=== PATIENT | male | born 1960 | race Caucasian/White ===

== ENCOUNTER 2021-05-04 10:05 | Inpatient (IN) ==
[2021-05-04] MEDS ORDERED: ONDANSETRON INJ 2 MG/ML 2 ML VIAL IV STA (10:19)
[2021-05-04] MEDS ORDERED: SODIUM CHLORIDE 0.9% 1000ML 1,000 ML IV STA (10:19)
--- NOTE | 2021-05-04 10:41 | Emergency Department Note ---
Impression & Plan DKA (diabetic ketoacidosis), Abdominal pain, acute, epigastric, Vomiting, Metabolic acidosis ED Provider Note NAME: TAY [id number] WIN AGE: 60 SEX: M : 1960 ARRIVES VIA: Ambulance INFORMANT: Patient, ED PROVIDER(S): Jad Varghese DO CHIEF COMPLAINT: Epigastric pain HPI: The patient is a 60-year-old male who presented to the emergency department for an evaluation of abdominal pain. The patient describes epigastric abdominal pain which began over the course the last 24 hours. He does have a history of pancreatitis. He is been vomiting. He did note some bright red blood in his last episode of emesis. He was treated with intranasal fentanyl prior to arrival. The patient states he also has a history of diabetes. He is noticed his blood sugars are elevated. He denies having any lower extremity pain or swelling. He does describe epigastric pain as well as back pain. He states he has not had pancreatitis in many years. He was able to stop drinking for a long time but yesterday started drinking again. ROS: See above HPI for pertinent positives & negatives. A total of 10 systems reviewed and were otherwise negative. PAST MEDICAL HISTORY: See Below PAST SURGICAL HISTORY: See Below FAMILY HISTORY: See Below SOCIAL HISTORY: See Below HOME MEDICATIONS: See Below ALLERGIES: See Below VITALS: See Below PHYSICAL EXAMINATION: GENERAL: The patient is awake and alert. The patient is very anxious appearing. EYES: The conjunctivae are clear. The pupils are round and reactive. EARS, NOSE, MOUTH AND THROAT: The nose is without any evidence of any deformity. NECK: The neck is nontender and supple. RESPIRATORY: Normal respiratory effort is noted there is no evidence of wheezing rhonchi or rales CARDIOVASCULAR: Regular rate and rhythm noted there no murmurs rubs or gallops normal S1 normal S2. GASTROINTESTINAL: The abdomen is soft and mildly distended. There is diffuse tenderness to palpation. There was no specific guarding or rigidity. MUSCULOSKELETAL/EXTREMITIES: There is no evidence of gross deformity full range of motion is noted in the hips and shoulders. SKIN: There is no obvious evidence of any rash. There are no petechiae, pallor or cyanosis noted. NEUROLOGIC: Patient is awake alert and oriented x3 strength is symmetric patellar reflexes are 2+ bilaterally MEDICAL DECISION MAKING: The patient is a 60-year-old male who presented to the emergency department for an evaluation of epigastric pain. The patient arrived via ambulance. He was having severe nausea and vomiting. He does have a history of pancreatitis. He states he thought this was from his pancreatitis. The patient was treated with pain medication prior to arrival as well as treated with pain medication in the emergency department. He also received IV fluids in the emergency department. The patient was having continued pain as well as nausea. He was found to have signs of early DKA on laboratory studies with a gap metabolic acidosis as well as significant elevation in his beta hydroxybutyrate. I discussed the patient's condition with him. [facility] also [facility] agreed to evaluate the patient in the emergency department for further management and disposition. Triage Nursing notes reviewed. Prior medical records reviewed Vital Signs: reviewed and remarkable for elevated blood pressure. Differential diagnosis: Etiologies such as appendicitis, diverticulitis, obstruction, inflammatory bowel disease, renal colic, PUD, biliary pathology, pancreatitis, mesenteric ischemia, aortic pathology, infections, genitourinary, UTI, perforated viscus, as well as others were entertained. ER treatment provided: See below Diagnostics interpreted by me: ECG: EKG was obtained in the emergency department. My interpretation is sinus tachycardia 101 bpm. There was no ectopy. There was no acute ST segment abnormalities noted. This was compared to a tracing from November 262011. No significant changes were noted. Cardiac Monitoring: An order was placed for continuous cardiac monitoring. The monitor shows a rate of 88 bpm with sinus rhythm. Laboratory studies: As stated above and show below. Imaging studies: See below Consultation(s): I discussed this case with Dr. Morris who [facility] They will evaluate the patient in the emergency department. Past Med/Surg History Medical History Alcohol dependence Chronic pain syndrome Chronic pancreatitis Diabetes mellitus type 1 Severe major depression, single episode, without psychotic features Surgical History S/P appendectomy S/P ERCP Social History Smoking Status: Current every day smoker Hx Alcohol Use: Yes Hx Substance Use: Yes Prescribed Medications: Marijuana Allergies Allergies Allergy/AdvReac Type Severity Reaction Status Date / Time trazodone AdvReac Severe PRIAPISM Verified 05/04/21 10:35 Home Meds Home Medications Medication Instructions Recorded Confirmed clonazepam 0.5 mg tablet 0.5 mg PO BID 05/04/21 05/04/21 gabapentin 400 mg capsule 400 mg PO TID 05/04/21 05/04/21 insulin glargine 100 unit/mL (3 15 unit SUBCUT BID 05/04/21 05/04/21 mL) subcutaneous pen (Lantus Solostar U-100 Insulin) lipase 4,200-protease 1 cap PO TIDM 05/04/21 05/04/21 14,200-amylase 24,600 unit capsule,delayed rel (Pancreaze) Results & Data (ED) Vital Signs Vital Signs - 24 hr 05/04/21 09:45 05/04/21 10:19 05/04/21 11:45 Temperature Temperature Source Pulse Rate Pulse Rate [Apical] 100 H Pulse Rate from SpO2 Sensor Pulse Rhythm [Apical] Pulse Strength [Apical] Respiratory Rate 22 Respiratory Effort / Characteristics Respiratory Depth Normal Respiratory Pattern Blood Pressure [Right Arm] 134/67 Blood Pressure Mean [Right Arm] 89 Blood Pressure Position [Right Arm] Pulse Oximetry 98 Oxygen Delivery Method Room Air Room Air Room Air Sepsis New/Unexplained Change in Mental Status No Sepsis Action Taken by Nursing No Action Required 05/04/21 12:04 05/04/21 13:30 05/04/21 15:12 Temperature 37 C Temperature Source Oral Pulse Rate 95 H Pulse Rate [Apical] 96 H 88 Pulse Rate from SpO2 Sensor 96 H Pulse Rhythm [Apical] Regular Regular Pulse Strength [Apical] Normal Normal Respiratory Rate 23 20 20 Respiratory Effort / Characteristics Non-Labored Spontaneous Non-Labored Respiratory Depth Normal Normal Respiratory Pattern Regular Regular Blood Pressure [Right Arm] 164/94 H 191/83 H Blood Pressure Mean [Right Arm] 117 119 Blood Pressure Position [Right Arm] Sitting Lying Pulse Oximetry 99 99 99 Oxygen Delivery Method Room Air Room Air Sepsis New/Unexplained Change in Mental Status Sepsis Action Taken by [facility] Medications Current Medication List: was personally reviewed by me Laboratory Data Attestation: I reviewed the patient's lab results. Result diagrams: 05/04/21 10:25 05/04/21 10:25 Lab Results 05/04/21 05/04/21 05/04/21 Range/Units 10:25 10:25 10:25 WBC 12.26 H (4.8-10.8) K/uL RBC 4.52 L (4.7-6.1) M/uL Hgb 12.8 L (14.0-18.0) g/dL Hct 38.7 L (42-52) % MCV 85.6 (80-100) fL MCH 28.3 (25-34) pg MCHC 33.1 (32-36) g/dL RDW Std Deviation 50.5 H (36.4-46.3) fL RDW Coeff of Nils 16.3 H (11.5-14.5) % Plt Count 333 (130-400) K/uL MPV 8.7 (7.4-10.4) fL Immature Gran % (Auto) 0.2 % Neut % (Auto) 87.9 % Lymph % (Auto) 8.0 % [place] % (Auto) 3.8 % Eos % (Auto) 0.0 % Baso % (Auto) 0.1 % Neut # (Auto) 10.78 H (1.4-6.5) K/uL Lymph # (Auto) 0.98 L (1.2-3.4) K/uL [place] # (Auto) 0.46 (0.11-0.59) K/uL Eos # (Auto) 0.00 (0-0.5) K/uL Baso # (Auto) 0.01 (0-0.2) K/uL Immature Gran # (Auto) 0.03 H (0.00-0.02) K/uL PT 11.8 (9.0-12.0) Seconds INR 1.2 H (0.9-1.1) APTT 22.8 (21.0-31.0) Seconds PTT Ratio 0.9 VBG pH (7.36-7.41) VBG pCO2 (38-50) mmHg VBG pO2 mmHg VBG HCO3 mmol/L VBG O2 Saturation % VBG Base Excess mEq/L Barometric Pressure mm/Hg Sodium 132 L (136-145) mmol/L Potassium 4.5 (3.5-5.1) mmol/L Chloride 99 (98-107) mmol/L Carbon Dioxide 12 L (21-32) mmol/L Anion Gap 21.0 H (3-11) BUN 15 (7-18) mg/dl Creatinine 1.21 (0.6-1.4) mg/dl Est Cr Clr Drug Dosing Not Reportable Est GFR ( Amer) 76.0 ml/min Est GFR (Non-Af Amer) 65.6 ml/min BUN/Creatinine Ratio 12.6 (10-20) Glucose 361 H* (70-99) mg/dl Calcium 9.3 (8.5-10.1) mg/dl Total Bilirubin 0.6 (0.2-1) mg/dl AST 37 (15-37) U/L ALT 30 (12-78) U/L Alkaline Phosphatase 126 H (45-117) U/L Troponin I < 0.015 (0-0.045) ng/ml Total Protein 7.5 (6.4-8.2) gm/dl Albumin 3.4 (3.4-5.0) gm/dl Globulin 4.1 H (2.5-4.0) gm/dl Albumin/Globulin Ratio 0.8 L (0.9-2) Lipase 26 L (73-393) U/L Beta-Hydroxybutyric Acd 58.69 H (0.2-2.81) mg/dl Urine Color Urine Appearance (Clear) Urine pH (4.5-7.5) Ur Specific [place] (1.000-1.030) Urine Protein (Negative) Urine Glucose (UA) (Negative) Urine Ketones (Negative) Urine Blood (Negative) Urine Nitrite (Negative) Urine Bilirubin (Negative) Urine Urobilinogen (Negative) Ur Leukocyte Esterase (Negative) Urine WBC (Auto) (0-5) /hpf Urine RBC (Auto) (0-4) /hpf U Hyaline Cast (Auto) (0-5) /lpf U Epithel Cells (Auto) (0-5) /lpf Urine Bacteria (Auto) (Negative) Ethyl Alcohol mg/dL (0-3) mg/dl COVID-19 Eval Order SARS-CoV-2 (PCR) (Negative) 05/04/21 05/04/21 05/04/21 Range/Units 10:25 12:50 13:20 WBC (4.8-10.8) K/uL RBC (4.7-6.1) M/uL Hgb (14.0-18.0) g/dL Hct (42-52) % MCV (80-100) fL MCH (25-34) pg MCHC (32-36) g/dL RDW Std Deviation (36.4-46.3) fL RDW Coeff of Nils (11.5-14.5) % Plt Count (130-400) K/uL MPV (7.4-10.4) fL Immature Gran % (Auto) % Neut % (Auto) % Lymph % (Auto) % [place] % (Auto) % Eos % (Auto) % Baso % (Auto) % Neut # (Auto) (1.4-6.5) K/uL Lymph # (Auto) (1.2-3.4) K/uL [place] # (Auto) (0.11-0.59) K/uL Eos # (Auto) (0-0.5) K/uL Baso # (Auto) (0-0.2) K/uL Immature Gran # (Auto) (0.00-0.02) K/uL PT (9.0-12.0) Seconds INR (0.9-1.1) APTT (21.0-31.0) Seconds PTT Ratio VBG pH 7.40 (7.36-7.41) VBG pCO2 29 L (38-50) mmHg VBG pO2 63 mmHg VBG HCO3 17 mmol/L VBG O2 Saturation 92.4 % VBG Base Excess -6.4 mEq/L Barometric Pressure 724.8 mm/Hg Sodium (136-145) mmol/L Potassium (3.5-5.1) mmol/L Chloride (98-107) mmol/L Carbon Dioxide (21-32) mmol/L Anion Gap (3-11) BUN (7-18) mg/dl Creatinine (0.6-1.4) mg/dl Est Cr Clr Drug Dosing Est GFR ( Amer) ml/min Est GFR (Non-Af Amer) ml/min BUN/Creatinine Ratio (10-20) Glucose (70-99) mg/dl Calcium (8.5-10.1) mg/dl Total Bilirubin (0.2-1) mg/dl AST (15-37) U/L ALT (12-78) U/L Alkaline Phosphatase (45-117) U/L Troponin I (0-0.045) ng/ml Total Protein (6.4-8.2) gm/dl Albumin (3.4-5.0) gm/dl Globulin (2.5-4.0) gm/dl Albumin/Globulin Ratio (0.9-2) Lipase (73-393) U/L Beta-Hydroxybutyric Acd (0.2-2.81) mg/dl Urine Color Urine Appearance (Clear) Urine pH (4.5-7.5) Ur Specific [place] (1.000-1.030) Urine Protein (Negative) Urine Glucose (UA) (Negative) Urine Ketones (Negative) Urine Blood (Negative) Urine Nitrite (Negative) Urine Bilirubin (Negative) Urine Urobilinogen (Negative) Ur Leukocyte Esterase (Negative) Urine WBC (Auto) (0-5) /hpf Urine RBC (Auto) (0-4) /hpf U Hyaline Cast (Auto) (0-5) /lpf U Epithel Cells (Auto) (0-5) /lpf Urine Bacteria (Auto) (Negative) Ethyl Alcohol mg/dL 11.0 H (0-3) mg/dl COVID-19 Eval Order Covid19 at [facility] SARS-CoV-2 (PCR) (Negative) 05/04/21 05/04/21 Range/Units 13:20 Unknown WBC (4.8-10.8) K/uL RBC (4.7-6.1) M/uL Hgb (14.0-18.0) g/dL Hct (42-52) % MCV (80-100) fL MCH (25-34) pg MCHC (32-36) g/dL RDW Std Deviation (36.4-46.3) fL RDW Coeff of Nils (11.5-14.5) % Plt Count (130-400) K/uL MPV (7.4-10.4) fL Immature Gran % (Auto) % Neut % (Auto) % Lymph % (Auto) % [place] % (Auto) % Eos % (Auto) % Baso % (Auto) % Neut # (Auto) (1.4-6.5) K/uL Lymph # (Auto) (1.2-3.4) K/uL [place] # (Auto) (0.11-0.59) K/uL Eos # (Auto) (0-0.5) K/uL Baso # (Auto) (0-0.2) K/uL Immature Gran # (Auto) (0.00-0.02) K/uL PT (9.0-12.0) Seconds INR (0.9-1.1) APTT (21.0-31.0) Seconds PTT Ratio VBG pH (7.36-7.41) VBG pCO2 (38-50) mmHg VBG pO2 mmHg VBG HCO3 mmol/L VBG O2 Saturation % VBG Base Excess mEq/L Barometric Pressure mm/Hg Sodium (136-145) mmol/L Potassium (3.5-5.1) mmol/L Chloride (98-107) mmol/L Carbon Dioxide (21-32) mmol/L Anion Gap (3-11) BUN (7-18) mg/dl Creatinine (0.6-1.4) mg/dl Est Cr Clr Drug Dosing Est GFR ( Amer) ml/min Est GFR (Non-Af Amer) ml/min BUN/Creatinine Ratio (10-20) Glucose (70-99) mg/dl Calcium (8.5-10.1) mg/dl Total Bilirubin (0.2-1) mg/dl AST (15-37) U/L ALT (12-78) U/L Alkaline Phosphatase (45-117) U/L Troponin I (0-0.045) ng/ml Total Protein (6.4-8.2) gm/dl Albumin (3.4-5.0) gm/dl Globulin (2.5-4.0) gm/dl Albumin/Globulin Ratio (0.9-2) Lipase (73-393) U/L Beta-Hydroxybutyric Acd (0.2-2.81) mg/dl Urine Color Yellow Urine Appearance Clear (Clear) Urine pH 5.5 (4.5-7.5) Ur Specific [place] 1.022 (1.000-1.030) Urine Protein 1+ H (Negative) Urine Glucose (UA) 3+ H (Negative) Urine Ketones 4+ H (Negative) Urine Blood 2+ H (Negative) Urine Nitrite Negative (Negative) Urine Bilirubin Negative (Negative) Urine Urobilinogen Negative (Negative) Ur Leukocyte Esterase Negative (Negative) Urine WBC (Auto) 1-5 (0-5) /hpf Urine RBC (Auto) 5-10 H (0-4) /hpf U Hyaline Cast (Auto) 0 (0-5) /lpf U Epithel Cells (Auto) 5-10 H (0-5) /lpf Urine Bacteria (Auto) Negative (Negative) Ethyl Alcohol mg/dL (0-3) mg/dl COVID-19 Eval Order SARS-CoV-2 (PCR) NEGATIVE (Negative) Administered Medications Morphine Sulfate (Morphine Sulfate 4 Mg/Ml 1 Ml Carp\Vial) 4 mg IV Q15M PRN PRN Reason: Pain Stop: 05/18/21 10:18 Last Admin: 05/04/21 14:48 Dose: 4 mg Documented by: [id number] Admin: 05/04/21 13:38 Dose: 4 mg Documented by: [id number] Admin: 05/04/21 12:17 Dose: 4 mg Documented by: [id number] Admin: 05/04/21 11:23 Dose: 4 mg Documented by: [id number] Discontinued Medications Sodium Chloride (Nss 1000ml) 1,000 mls @ 999 mls/hr IV .Q1H1M STA Stop: 05/04/21 11:19 Last Infusion: 05/04/21 12:29 Dose: 0 mls/hr Documented by: [id number] Admin: 05/04/21 11:28 Dose: 999 mls/hr Documented by: [id number] Sodium Chloride (Nss 1000ml) 1,000 mls @ 999 mls/hr IV .Q1H1M ONE Stop: 05/04/21 13:26 Last Admin: 05/04/21 13:38 Dose: 999 mls/hr Documented by: [id number] Ondansetron HCl (Ondansetron Inj 2 Mg/Ml 2 Ml Vial) 4 mg IV NOW STA Stop: 05/04/21 10:20 Last Admin: 05/04/21 11:23 Dose: 4 mg Documented by: [id number] Imaging Data Radiologist's Impression: Chest X-Ray 05/04/21 10:19 XR chest 1V portable HISTORY: Generalized abdominal pain. COMPARISON: Chest 11/27/2011. FINDINGS: The lungs are clear. Cardiac silhouette is normal in size. No pleural effusions. No pneumothorax. IMPRESSION: No acute process. ACT 112: Negative or not required by law. Electronically signed by: John Varela M.D. 05/04/2021 10:54 AM KUB X-Ray 05/04/21 10:19 KUB HISTORY: Generalized abdominal pain COMPARISON: Abdominal series 04/11/2011. FINDINGS: Nondilated gas-filled loops of bowel within the abdomen. No evidence for bowel obstruction. No renal calculi. No ureteral calculi. No pneumoperitoneum or pneumatosis. IMPRESSION: Unremarkable bowel gas pattern. No evidence for bowel obstruction. ACT 112: Negative or not required by law. Electronically signed by: John Varela M.D. 05/04/2021 10:55 AM Discharge Plan Visit Data Chief Complaint: Abdominal Pain Stated Complaint: AB PAIN ED Provider: Jad Varghese Discharge Problem: DKA (diabetic ketoacidosis), Abdominal pain, acute, epigastric, Vomiting, Metabolic acidosis Patient Disposition: Being Evaluated by Hospitalist Forms Stand Alone Forms: [facility] Prescriptions Prescriptions: No Action clonazepam 0.5 mg Tablet 0.5 mg PO BID RF: 0 gabapentin 400 mg Capsule 400 mg PO TID RF: 0 Lantus Solostar U-100 Insulin 100 unit/mL (3 mL) Insulin Pen 15 unit SUBCUT BID RF: 0 Pancreaze 4,200-14,200- 24,600 unit Capsule,Delayed Release(Dr/Ec) 1 cap PO TIDM RF: 0 Referrals Referrals: PCP,NO [Primary Care Provider] -
[2021-05-04 10:46] LABS: Basophils # (auto) 0.01 K/uL (0-0.2); Basophils % (auto) 0.1 %; Hematocrit (blood only) 38.7 % (42-52); Hemoglobin 12.8 g/dL (14.0-18.0); Immature Granulocytes # (auto) 0.03 K/uL (0.00-0.02); Immature Granulocytes % (auto) 0.2 %; Lymphocytes # (auto) 0.98 K/uL (1.2-3.4); Mean Corpuscular Hemoglobin 28.3 pg (25-34); Mean Corpuscular Hgb Conc 33.1 g/dL (32-36); Mean Corpuscular Volume 85.6 fL (80-100); Mean Platelet Volume 8.7 fL (7.4-10.4); Monocytes # (auto) 0.46 K/uL (0.11-0.59); Monocytes % (auto) 3.8 %; Neutrophils # (auto) 10.78 K/uL (1.4-6.5); Neutrophils % (auto) 87.9 %; Platelet Count 333 K/uL (130-400); RDW Coefficient of Variation 16.3 % (11.5-14.5); RDW Standard Deviation 50.5 fL (36.4-46.3); Red Blood Count 4.52 M/uL (4.7-6.1); White Blood Count 12.26 K/uL (4.8-10.8)
--- NOTE | 2021-05-04 10:55 | XRay Report ---
XR chest 1V portable HISTORY: Generalized abdominal pain. COMPARISON: Chest 11/27/2011. FINDINGS: The lungs are clear. Cardiac silhouette is normal in size. No pleural effusions. No pneumot horax. IMPRESSION: No acute process. ACT 112: Negative or not required by law. Electronically signed by: John Varela M.D. 05/04/2021 10:54 AM
--- NOTE | 2021-05-04 10:57 | XRay Report ---
KUB HISTORY: Generalized abdominal pain COMPARISON: Abdominal series 04/11/2011. FINDINGS: Nondilated gas-filled loops of bowel within the abdomen. No evidence for bowel obstruction. No renal calculi. No ureteral calculi. No pneumoperitoneum or pneumatosis. IMPRESSION: Unremarkable bowel gas pattern. No evidence for bowel obstruction. ACT 112: Negative or not required by law. Electronically signed by: John Varela M.D. 05/04/2021 10:55 AM
[2021-05-04 11:00] LABS: INR 1.2 (0.9-1.1); Partial Thromboplastin Ratio 0.9; Partial Thromboplastin Time 22.8 Seconds (21.0-31.0); Prothrombin Time 11.8 Seconds (9.0-12.0)
[2021-05-04 11:18] LABS: Alanine Aminotransferase 30 U/L (12-78); Albumin Globulin Ratio 0.8 (0.9-2); Albumin Level 3.4 gm/dl (3.4-5.0); Alkaline Phosphatase 126 U/L (45-117); Aspartate Aminotransferase 37 U/L (15-37); BUN Creatinine Ratio 12.6 (10-20); Bilirubin,Total 0.6 mg/dl (0.2-1); Blood Urea Nitrogen 15 mg/dl (7-18); Calcium 9.3 mg/dl (8.5-10.1); Carbon Dioxide 12 mmol/L (21-32); Chloride 99 mmol/L (98-107); Est GFR (Non-African American) 65.6 ml/min; Globulin 4.1 gm/dl (2.5-4.0); Glucose 361 mg/dl (70-99); Lipase 26 U/L (73-393); Potassium 4.5 mmol/L (3.5-5.1); Sodium 132 mmol/L (136-145); Total Protein 7.5 gm/dl (6.4-8.2); Troponin I < 0.015 ng/ml (0-0.045)
[2021-05-04] MEDS: MoRPHine SULFATE 4 MG/ML 1 ML CARP\\VIAL IV PRN ×8 (11:23→23:22)
[2021-05-04 12:18] LABS: Beta-Hydroxybutyrate 58.69 mg/dl (0.2-2.81)
[2021-05-04] MEDS ORDERED: SODIUM CHLORIDE 0.9% 1000ML 1,000 ML IV ONE (12:26)
[2021-05-04 12:30] LABS: Appearance Urine Clear (Clear); Bacteria Urine Automated Negative (Negative); Bilirubin Urine Negative (Negative); Blood Urine 2+ (Negative); Cast Urine Automated 0 /lpf (0-5); Color Urine Yellow; Glucose Urine UA 3+ (Negative); Ketones Urine 4+ (Negative); Leukocyte Esterase Urine Negative (Negative); Nitrite Urine Negative (Negative); Protein Urine 1+ (Negative); Specific Gravity Urine 1.022 (1.000-1.030); Urobilinogen Urine Negative (Negative); pH Urine 5.5 (4.5-7.5)
[2021-05-04 13:03] LABS: Base Excess VBG -6.4 mEq/L; Oxygen Saturation VBG 92.4 %; pH VBG 7.4 (7.36-7.41)
--- NOTE | 2021-05-04 16:34 | History & Physical Report ---
Date of Service May 04, 2021 Assessment & Plan (1) Abdominal pain: (2) Nausea & vomiting: (3) Hyperglycemia: Plan: Abd pain, N/V: -likely 2/2 Pancreatitis vs possible withdrawal from methadone -CT abd pending -NPO for now - hgb in the hospital better than clinic hgb ---- 10.4 in 03/2021 and today 12.8 ---- due to hx of blood in the vomit will trend H/H ---- SCD for DVT ppx -wbc is elevated: normal UA, afebrile and pending CT abd Hyperglycemia: -pt did not take his insulin for 2 days - currently his glucose is 361 - receiving 1 bolus NS -for now will start the pt on his home lantus units 25 units BID ---- will change the units tomorrow depending on his PO status and glucose level Chronic pain syndrome with methadone tx -methadone prescribed by Dr. Neal Gee ---- last took medication 2 weeks ago per pt but it looks like he has not taken the meds for > 1 month on PDMP -for now will manage pain with morphine ETOH abuse: -last use on 05/03 -will start the pt on ETOH withdrawal protocol - pt already on gabapentin 600mg TID Elevated BP: -no hx of HTN - for now will manage with labetalol prn Depression/anxiety: -c/w home meds Diet: NPO DVT PPx: due to possible blood in the vomit SCD Code Status:FULL CODE Emergency Contact: Daughter Aggie: [phone] History of Present Illness Primary Care Provider: NO PCP Pt is a 60 M with with hx of ETOH abuse, Chronic pancreatitis, Type 1 DM, HLD, Depression, Hep C, Opioid use and dependence (was on methadone), chronic pain syndrome, Anxiety, hypogonadism came to the ER with severe epigastric abd pain that radiates to the lower back, N/V. per pt he noticed some blood in his vomit once. Also complained of b/l frontal PATEL. He drinks Vodka &usually drinks gallon. Last ETOH use was yesterday. Per pt has hx of multiple admissions for pancreatitis. He was on fentayl 120 mcg patch, Dilaudid 12 mg 5-6x/day, due to high dose of pain medication he was started on methadone and currently on 30mg daily but have not taken the medication for few weeks (due to transportation issues) Denied any fever In the ER pt was given morphine for pain control and 1L of NS bolus Allergies Allergy/AdvReac Type Severity Reaction Status Date / Time trazodone AdvReac Severe PRIAPISM Verified 05/04/21 10:35 Home Medications Medication Instructions Recorded Confirmed Type Novolog U-100 Insulin aspart 5 units SUBCUT TIDM 05/04/21 05/04/21 History amitriptyline 75 mg tablet 75 mg PO HS 05/04/21 05/04/21 History clonazepam 0.5 mg tablet 1 mg PO DAILY 05/04/21 05/04/21 History docusate sodium 100 mg capsule 100 mg PO BID 05/04/21 05/04/21 History (Colace) escitalopram oxalate 20 mg PO DAILY 05/04/21 05/04/21 History gabapentin 400 mg capsule 600 mg PO TID 05/04/21 05/04/21 History glipizide 5 mg tablet 5 mg PO BID 05/04/21 05/04/21 History insulin glargine 100 unit/mL (3 25 unit SUBCUT BID 05/04/21 05/04/21 History mL) subcutaneous pen (Lantus Solostar U-100 Insulin) lipase 4,200-protease 1 cap PO TIDM 05/04/21 05/04/21 History 14,200-amylase 24,600 unit capsule,delayed rel (Pancreaze) pantoprazole 40 mg tablet,delayed 40 mg PO DAILY 05/04/21 05/04/21 History release (Protonix) quetiapine 400 mg tablet (Seroquel) 400 mg PO HS 05/04/21 05/04/21 History Past Med/Surg History Medical History Alcohol dependence Chronic pain syndrome Chronic pancreatitis Diabetes mellitus type 1 Severe major depression, single episode, without psychotic features Surgical History S/P appendectomy S/P ERCP Social History Smoking Status: Current every day smoker Hx Alcohol Use: Yes Hx Substance Use: Yes Prescribed Medications: Marijuana Review of Systems Review of Systems: At least 10 Review of systems were reviewed and all neg ative except as indicated in HPI Physical Exam Physical Exam: General:. NAD, well developed, well nourished, average body habitus HEENT:. Normocephalic and atraumatic, Normal Conjunctiva, EOMI, Sclera is non- icteric Lungs:. No signs of respiratory distress, CTA, no wheezing or crackles Heart:. Normal S1, S2, no murmur Abdominal:.pt started complaining about abd pain with mild palpation (d iffusely), ND, Soft, normal BS MSK:. No deformities of UE and LE, No leg edema Skin:. no rash or open wound Psych:. AAOx3, normal affect Results & Data Results & Data ([facility]) Vital Signs (Past 12 Hours) Vital Signs Temp Pulse Pulse Resp BP Pulse Ox 05/04/21 15:12 37 C 88 20 191/83 H 99 05/04/21 13:30 96 H 20 164/94 H 99 05/04/21 12:04 95 H 23 99 05/04/21 09:45 100 H 22 134/67 98 Laboratory Results Short CBC 05/04/21 Range/Units 10:25 WBC 12.26 H (4.8-10.8) K/uL Hgb 12.8 L (14.0-18.0) g/dL Hct 38.7 L (42-52) % Plt Count 333 (130-400) K/uL BMP 05/04/21 10:25 Sodium 132 L Potassium 4.5 Chloride 99 Carbon Dioxide 12 L BUN 15 Creatinine 1.21 Glucose 361 H* Calcium 9.3 Cardiac Enzymes 05/04/21 Range/Units 10:25 Troponin I < 0.015 (0-0.045) ng/ml Liver Function 05/04/21 Range/Units 10:25 Total Bilirubin 0.6 (0.2-1) mg/dl AST 37 (15-37) U/L ALT 30 (12-78) U/L Alkaline Phosphatase 126 H (45-117) U/L Albumin 3.4 (3.4-5.0) gm/dl Urine 05/04/21 Range/Units Unknown Urine Color Yellow Urine Appearance Clear (Clear) Urine pH 5.5 (4.5-7.5) Ur Specific [place] 1.022 (1.000-1.030) Urine Protein 1+ H (Negative) Urine Glucose (UA) 3+ H (Negative) Diagnostic Findings Chest X-Ray 05/04/21 10:19 XR chest 1V portable HISTORY: Generalized abdominal pain. COMPARISON: Chest 11/27/2011. FINDINGS: The lungs are clear. Cardiac silhouette is normal in size. No pleural effusions. No pneumothorax. IMPRESSION: No acute process. ACT 112: Negative or not required by law. Electronically signed by: John Varela M.D. 05/04/2021 10:54 AM KUB X-Ray 05/04/21 10:19 KUB HISTORY: Generalized abdominal pain COMPARISON: Abdominal series 04/11/2011. FINDINGS: Nondilated gas-filled loops of bowel within the abdomen. No evidence for bowel obstruction. No renal calculi. No ureteral calculi. No pneumoperitoneum or pneumatosis. IMPRESSION: Unremarkable bowel gas pattern. No evidence for bowel obstruction. ACT 112: Negative or not required by law. Electronically signed by: John Varela M.D. 05/04/2021 10:55 AM Code Status & VTE Plan VTE Prophylaxis Plan VTE Prophylaxis will be ordered: Yes
[2021-05-04] MEDS ORDERED: OPTIRAY 320 100ml IV ONE (16:40)
--- NOTE | 2021-05-04 17:01 | CT Scan Report ---
ABDOMEN AND PELVIS CT WITH IV CONTRAST CT DOSE: 315.31 mGy.cm HISTORY: epigastric pain TECHNIQUE: Multiaxial CT images of the abdomen and pelvis were performed following the use of intrave nous contrast. A dose lowering technique was utilized adhering to the principles of ALARA. COMPARISON STUDY: Abdomen and pelvis CT 02/13/2010. FINDINGS: The lung bases are clear. No pneumoperitoneum. No pneumatosis. No fractures within the visu alized osseous structures. Hepatic steatosis. The main portal vein is patent. The gallbladder, spleen , and adrenal glands are unremarkable. The kidneys enhance normally. No hydronephrosis. Stable 1 cm e xophytic cyst within the left kidney. No retroperitoneal lymphadenopathy. Normal caliber abdominal ao rta. The bladder is unremarkable. The prostate gland is mildly enlarged. Truncated pancreas. Multiple calcifications within the pancreas consistent with chronic pancreatitis. No peripancreatic inflammat ory change at this time to suggest an acute pancreatitis. The main pancreatic duct is mildly dilated up to 4 mm. This remains unchanged. Questionable thickening of the distal colon and rectum is likely due to underdistention. There is abrupt caliber change seen within the distal transverse colon best s een on image 178. The colon proximal to this location is mildly dilated and filled with gas and stool . Therefore, this could be transient or possibly represent a partial large bowel obstruction with the transition point located at the distal transverse colon. Given the abrupt caliber change, a colonic lesion cannot be excluded. Mildly distended gas and fluid-filled stomach. However, no evidence for ga stric outlet obstruction. IMPRESSION: 1. There is abrupt caliber change seen within the distal transverse colon. The colon proximal to this location is mildly dilated and filled with gas and stool. Therefore, this could be transient or poss ibly represent a partial large bowel obstruction with the transition point located at the distal jett sverse colon. Given the abrupt caliber change, a colonic lesion cannot be excluded. Follow-up colonos copy is recommended for further evaluation. 2. Chronic pancreatitis, unchanged. No evidence for acute pancreatitis at this time. 3. Hepatic steatosis. 4. Mildly distended gas and fluid-filled stomach. However, no evidence for gastric outlet obstruction . ACT 112: Negative or not required by law. Electronically signed by: John Varela M.D. 05/04/2021 5:00 PM
[2021-05-04] MEDS ORDERED: DEXTROSE 50% 50 ML SYRINGE IV PRN (19:23)
[2021-05-04] MEDS ORDERED: LORazepam 1 MG TAB PO PRN (19:23)
[2021-05-04] MEDS ORDERED: ONDANSETRON INJ 2 MG/ML 2 ML VIAL IV PRN (19:23)
[2021-05-04] MEDS ORDERED: GLUCAGON FOR INJ 1 MG VIAL SQ PRN (19:23)
[2021-05-04] MEDS ORDERED: GLUCOSE 10 TABS/TUBE PO PRN (19:23)
[2021-05-04] MEDS ORDERED: THIAMINE HCL 100 MG TAB PO SCH (19:23)
[2021-05-04] MEDS ORDERED: GLUCOSE 40% GEL 15 GM TUBE PO PRN (19:23)
[2021-05-04] MEDS ORDERED: FOLIC ACID 1 MG TAB PO SCH (19:23)
--- NOTE | 2021-05-04 19:35 | Surgery Consultation ---
Date of Consultation May 04, 2021 Assessment & Plan (1) Abdominal pain, acute, epigastric: 60-year-old male with epigastric pain and clinical history that appears to be consistent with his chronic pancreatitis which flared secondary to recent alcohol use. I personally viewed the CT scan and the finding of tapering of his colon was recognized, however the patient was having loose bowel movements prior to arrival. He does not appear to be completely obstructed. He would benefit from direct visualization with colonoscopy, or at least a CT scan with oral contrast. No surgical intervention indicated at this time Recommend direct visualization with colonoscopy, if not able to perform then would recommend repeat CT scan with oral contrast given the time to reach the colon Surgery will follow peripherally (2) Chronic pancreatitis: History of Present Illness Attending Physician: Liseth Coto MD History of Present Illness 60-year-old male with history of chronic pancreatitis secondary to alcohol use, presents to the emergency department with upper abdominal pain. He states he had been abstaining from alcohol for many years, but last night began drinking. About 12 hours later he developed sharp pain in his epigastric region that radiated to his back. It felt like an ice pick. He also had some diarrhea along with some nausea. This is similar to his prior episodes of pancreatitis with drinking. He had a CT scan performed in the emergency department that showed an abrupt caliber change in his transverse colon that could represent a mass or peristalsis. He has never had a colonoscopy. No family history of colon cancer. He has not had any bowel changes or melena over the past several months. Allergies Allergy/AdvReac Type Severity Reaction Status Date / Time trazodone AdvReac Severe PRIAPISM Verified 05/04/21 10:35 Home Medications Medication Instructions Recorded Confirmed Type Novolog U-100 Insulin aspart 5 units SUBCUT TIDM 05/04/21 05/04/21 History amitriptyline 75 mg tablet 75 mg PO HS 05/04/21 05/04/21 History clonazepam 0.5 mg tablet 1 mg PO DAILY 05/04/21 05/04/21 History docusate sodium 100 mg capsule 100 mg PO BID 05/04/21 05/04/21 History (Colace) escitalopram oxalate 20 mg PO DAILY 05/04/21 05/04/21 History gabapentin 400 mg capsule 600 mg PO TID 05/04/21 05/04/21 History glipizide 5 mg tablet 5 mg PO BID 05/04/21 05/04/21 History insulin glargine 100 unit/mL (3 25 unit SUBCUT BID 05/04/21 05/04/21 History mL) subcutaneous pen (Lantus Solostar U-100 Insulin) lipase 4,200-protease 1 cap PO TIDM 05/04/21 05/04/21 History 14,200-amylase 24,600 unit capsule,delayed rel (Pancreaze) pantoprazole 40 mg tablet,delayed 40 mg PO DAILY 05/04/21 05/04/21 History release (Protonix) quetiapine 400 mg tablet (Seroquel) 400 mg PO HS 05/04/21 05/04/21 History Patient History Medical History (Updated 05/04/21 @ 19:34 by Roni Todd DO, FACS) Alcohol dependence Chronic pain syndrome Chronic pancreatitis Diabetes mellitus type 1 Severe major depression, single episode, without psychotic features Surgical History S/P appendectomy S/P ERCP Social History Smoking Status: Current every day smoker Hx Alcohol Use: Yes Hx Substance Use: Yes Prescribed Medications: Marijuana Review of Systems Review of Systems: All systems reviewed & are unremarkable except as noted in HPI & below Physical Exam Constitutional: WD/WN, vitals as above Respiratory: normal respiratory effort, lungs clear to auscultation Cardiovascular: RRR, no murmur, no edema Gastrointestinal (Abdomen): Percussion/Palpation: + abdomen tender (Tender palpation in epigastric region) and abdomen soft; no guarding, abdomen not rigid and no hepatosplenomegaly Results & Data ([facility]) Vital Signs (Past 12 Hours) Vital Signs Temp Pulse Pulse Resp BP Pulse Ox 05/04/21 15:12 37 C 88 20 191/83 H 99 05/04/21 13:30 96 H 20 164/94 H 99 05/04/21 12:04 95 H 23 99 05/04/21 09:45 100 H 22 134/67 98 Laboratory Results Laboratory Results - last 24 hr 05/04/21 05/04/21 05/04/21 10:25 10:25 10:25 WBC 12.26 H RBC 4.52 L Hgb 12.8 L Hct 38.7 L MCV 85.6 MCH 28.3 MCHC 33.1 RDW Std Deviation 50.5 H RDW Coeff of Nils 16.3 H Plt Count 333 MPV 8.7 Immature Gran % (Auto) 0.2 Neut % (Auto) 87.9 Lymph % (Auto) 8.0 Wake % (Auto) 3.8 Eos % (Auto) 0.0 Baso % (Auto) 0.1 Neut # (Auto) 10.78 H Lymph # (Auto) 0.98 L Wake # (Auto) 0.46 Eos # (Auto) 0.00 Baso # (Auto) 0.01 Immature Gran # (Auto) 0.03 H PT 11.8 INR 1.2 H APTT 22.8 PTT Ratio 0.9 VBG pH VBG pCO2 VBG pO2 VBG HCO3 VBG O2 Saturation VBG Base Excess Barometric Pressure Sodium 132 L Potassium 4.5 Chloride 99 Carbon Dioxide 12 L Anion Gap 21.0 H BUN 15 Creatinine 1.21 Est Cr Clr Drug Dosing Not Reportable Est GFR ( Amer) 76.0 Est GFR (Non-Af Amer) 65.6 BUN/Creatinine Ratio 12.6 Glucose 361 H* Calcium 9.3 Total Bilirubin 0.6 AST 37 ALT 30 Alkaline Phosphatase 126 H Troponin I < 0.015 Total Protein 7.5 Albumin 3.4 Globulin 4.1 H Albumin/Globulin Ratio 0.8 L Lipase 26 L Beta-Hydroxybutyric Acd 58.69 H Urine Color Urine Appearance Urine pH Ur Specific [place] Urine Protein Urine Glucose (UA) Urine Ketones Urine Blood Urine Nitrite Urine Bilirubin Urine Urobilinogen Ur Leukocyte Esterase Urine WBC (Auto) Urine RBC (Auto) U Hyaline Cast (Auto) U Epithel Cells (Auto) Urine Bacteria (Auto) Ethyl Alcohol mg/dL COVID-19 Eval Order SARS-CoV-2 (PCR) 05/04/21 05/04/21 05/04/21 10:25 12:50 13:20 WBC RBC Hgb Hct MCV MCH MCHC RDW Std Deviation RDW Coeff of Nils Plt Count MPV Immature Gran % (Auto) Neut % (Auto) Lymph % (Auto) Wake % (Auto) Eos % (Auto) Baso % (Auto) Neut # (Auto) Lymph # (Auto) Wake # (Auto) Eos # (Auto) Baso # (Auto) Immature Gran # (Auto) PT INR APTT PTT Ratio VBG pH 7.40 VBG pCO2 29 L VBG pO2 63 VBG HCO3 17 VBG O2 Saturation 92.4 VBG Base Excess -6.4 Barometric Pressure 724.8 Sodium Potassium Chloride Carbon Dioxide Anion Gap BUN Creatinine Est Cr Clr Drug Dosing Est GFR ( Amer) Est GFR (Non-Af Amer) BUN/Creatinine Ratio Glucose Calcium Total Bilirubin AST ALT Alkaline Phosphatase Troponin I Total Protein Albumin Globulin Albumin/Globulin Ratio Lipase Beta-Hydroxybutyric Acd Urine Color Urine Appearance Urine pH Ur Specific [place] Urine Protein Urine Glucose (UA) Urine Ketones Urine Blood Urine Nitrite Urine Bilirubin Urine Urobilinogen Ur Leukocyte Esterase Urine WBC (Auto) Urine RBC (Auto) U Hyaline Cast (Auto) U Epithel Cells (Auto) Urine Bacteria (Auto) Ethyl Alcohol mg/dL 11.0 H COVID-19 Eval Order Covid19 at [facility] SARS-CoV-2 (PCR) 05/04/21 05/04/21 13:20 Unknown WBC RBC Hgb Hct MCV MCH MCHC RDW Std Deviation RDW Coeff of Nils Plt Count MPV Immature Gran % (Auto) Neut % (Auto) Lymph % (Auto) Wake % (Auto) Eos % (Auto) Baso % (Auto) Neut # (Auto) Lymph # (Auto) Wake # (Auto) Eos # (Auto) Baso # (Auto) Immature Gran # (Auto) PT INR APTT PTT Ratio VBG pH VBG pCO2 VBG pO2 VBG HCO3 VBG O2 Saturation VBG Base Excess Barometric Pressure Sodium Potassium Chloride Carbon Dioxide Anion Gap BUN Creatinine Est Cr Clr Drug Dosing Est GFR ( Amer) Est GFR (Non-Af Amer) BUN/Creatinine Ratio Glucose Calcium Total Bilirubin AST ALT Alkaline Phosphatase Troponin I Total Protein Albumin Globulin Albumin/Globulin Ratio Lipase Beta-Hydroxybutyric Acd Urine Color Yellow Urine Appearance Clear Urine pH 5.5 Ur Specific [place] 1.022 Urine Protein 1+ H Urine Glucose (UA) 3+ H Urine Ketones 4+ H Urine Blood 2+ H Urine Nitrite Negative Urine Bilirubin Negative Urine Urobilinogen Negative Ur Leukocyte Esterase Negative Urine WBC (Auto) 1-5 Urine RBC (Auto) 5-10 H U Hyaline Cast (Auto) 0 U Epithel Cells (Auto) 5-10 H Urine Bacteria (Auto) Negative Ethyl Alcohol mg/dL COVID-19 Eval Order SARS-CoV-2 (PCR) NEGATIVE Diagnostic Findings ABDOMEN AND PELVIS CT WITH IV CONTRAST CT DOSE: 315.31 mGy.cm HISTORY: epigastric pain TECHNIQUE: Multiaxial CT images of the abdomen and pelvis were performed following the use of intravenous contrast. A dose lowering technique was utilized adhering to the principles of ALARA. COMPARISON STUDY: Abdomen and pelvis CT 02/13/2010. FINDINGS: The lung bases are clear. No pneumoperitoneum. No pneumatosis. No fractures within the visualized osseous structures. Hepatic steatosis. The main portal vein is patent. The gallbladder, spleen, and adrenal glands are unremarkable. The kidneys enhance normally. No hydronephrosis. Stable 1 cm exophytic cyst within the left kidney. No retroperitoneal lymphadenopathy. Normal caliber abdominal aorta. The bladder is unremarkable. The prostate gland is mildly enlarged. Truncated pancreas. Multiple calcifications within the pancreas consistent with chronic pancreatitis. No peripancreatic inflammatory change at this time to suggest an acute pancreatitis. The main pancreatic duct is mildly dilated up to 4 mm. This remains unchanged. Questionable thickening of the distal colon and rectum is likely due to underdistention. There is abrupt caliber change seen within the distal transverse colon best seen on image 178. The colon proximal to this location is mildly dilated and filled with gas and stool. Therefore, this could be transient or possibly represent a partial large bowel obstruction with the transition point located at the distal transverse colon. Given the abrupt caliber change, a colonic lesion cannot be excluded. Mildly distended gas and fluid-filled stomach. However, no evidence for gastric outlet obstruction. IMPRESSION: 1. There is abrupt caliber change seen within the distal transverse colon. The colon proximal to this location is mildly dilated and filled with gas and stool. Therefore, this could be transient or possibly represent a partial large bowel obstruction with the transition point located at the distal transverse colon. Given the abrupt caliber change, a colonic lesion cannot be excluded. Follow-up colonoscopy is recommended for further evaluation. 2. Chronic pancreatitis, unchanged. No evidence for acute pancreatitis at this time. 3. Hepatic steatosis. 4. Mildly distended gas and fluid-filled stomach. However, no evidence for gastric outlet obstruction. PG Care Time/CCT Total # of Minutes Spent Total Time Spent with Patient: Total time spent is greater than 50% in coordination of care (as documented) at patient's floor/unit and/or counseling patient: Coding Level of Care Code 45646 Inpt Consult Level 3 Diagnoses Abdominal pain, acute, epigastric R10.13 Chronic pancreatitis K86.1
[2021-05-04] MEDS: AMITRIPTYLINE HCL 25 MG TAB PO SCH (21:00)
[2021-05-04] MEDS ORDERED: INSULIN GLARGINE SOLOSTAR 100 UNITS/ML 3 ML PEN SC SCH (21:00)
[2021-05-04] MEDS ORDERED: PANTOprazole 40 MG TAB PO SCH (21:00)
[2021-05-04] MEDS: QUEtiapine FUMARATE 200 MG TAB PO SCH (21:00)
[2021-05-04] MEDS ORDERED: INSULIN ASPART 100 UNITS/ML 3 ML PEN SC SCH (21:00)
[2021-05-04] MEDS ORDERED: DOCUSATE SODIUM 100 MG CAP PO SCH (21:00)
[2021-05-04] MEDS ORDERED: PHARMACY GLYCEMIC MGMT CONSULT PRN ×2 (21:01→21:35)
[2021-05-04] MEDS: GABAPENTIN 300 MG CAP PO SCH (21:26)
[2021-05-04] MEDS ORDERED: STAT IV Infusion **Titration per Protocol STA ×2 (21:35)
[2021-05-04] MEDS ORDERED: DC ALL PREVIOUSLY ORDERED DIABETES MEDS ONE (21:35)
[2021-05-04] MEDS ORDERED: DKA GOAL RANGE 150-250 mg/dl ONE (21:35)
[2021-05-04] MEDS ORDERED: INSULIN HUMAN REGULAR PER UNIT 6 UNITS in SYRINGE 5.94 ML IV ONE (22:00)
[2021-05-04 22:16] LABS: Amphetamines+Metham, Urine Neg (Neg); Barbiturates, Urine Neg (Neg); Benzodiazepine, Urine Neg (Neg); Cocaine, Urine Neg (Neg); MDMA (Ecstacy), Urine Neg (Neg); Methadone, Urine Pos (Neg); Opiate, Urine Pos (Neg); Phencyclidine, Urine Neg (Neg)
[2021-05-04] MEDS: INSULIN REGULAR 250 UNITS in SODIUM CHLORIDE 0.9% 247.5 ML IV SCH (22:19)
[2021-05-04] MEDS: SODIUM CHLORIDE 0.9% 1000ML 1,000 ML IV SCH (22:27)
[2021-05-04 23:18] LABS: BUN Creatinine Ratio 14.1 (10-20); Calcium 7.7 mg/dl (8.5-10.1); Creatinine Clr Calc Pharmacy 62.2 ml/min; Est GFR (African American) 77.6 ml/min; Est GFR (Non-African American) 66.9 ml/min; Magnesium 1.9 mg/dl (1.8-2.4); Phosphorus 2.6 mg/dl (2.5-4.9); Potassium 3.6 mmol/L (3.5-5.1)
[2021-05-05] MEDS: PENDING 1/2NSS+20mEq KCL IVF SCH ×5 (01:50→16:30)
[2021-05-05] MEDS: PENDING D5 1/2NS+20mEq KCL IVF SCH ×4 (01:51→16:31)
[2021-05-05 02:02] LABS: Basophils # (auto) 0.01 K/uL (0-0.2); Basophils % (auto) 0.1 %; Hematocrit (blood only) 35.6 % (42-52); Immature Granulocytes # (auto) 0.01 K/uL (0.00-0.02); Immature Granulocytes % (auto) 0.1 %; Lymphocytes # (auto) 2.29 K/uL (1.2-3.4); Lymphocytes % (auto) 31.2 %; Mean Corpuscular Hemoglobin 28.6 pg (25-34); Mean Corpuscular Hgb Conc 33.7 g/dL (32-36); Mean Corpuscular Volume 84.8 fL (80-100); Mean Platelet Volume 8.6 fL (7.4-10.4); Monocytes # (auto) 0.75 K/uL (0.11-0.59); Monocytes % (auto) 10.2 %; Neutrophils # (auto) 4.29 K/uL (1.4-6.5); Neutrophils % (auto) 58.4 %; Platelet Count 237 K/uL (130-400); RDW Coefficient of Variation 16.4 % (11.5-14.5); RDW Standard Deviation 50.2 fL (36.4-46.3); White Blood Count 7.35 K/uL (4.8-10.8)
[2021-05-05 02:20] LABS: Albumin Level 2.8 gm/dl (3.4-5.0); BUN Creatinine Ratio 15.6 (10-20); Calcium 8.4 mg/dl (8.5-10.1); Creatinine Clr Calc Pharmacy 70.6 ml/min; Est GFR (African American) 91.3 ml/min; Est GFR (Non-African American) 78.8 ml/min; Potassium 3.8 mmol/L (3.5-5.1)
[2021-05-05 02:29] LABS: Albumin Globulin Ratio 0.8 (0.9-2); Bilirubin,Total 0.7 mg/dl (0.2-1); Globulin 3.4 gm/dl (2.5-4.0); Phosphorus 2.8 mg/dl (2.5-4.9); Total Protein 6.2 gm/dl (6.4-8.2)
[2021-05-05 03:03] LABS: Folate (Folic Acid) > 20.00 ng/ml (>5.38); Vitamin B12 609 pg/ml (193-986)
[2021-05-05] MEDS: SODIUM CHLORIDE 0.9% 1000ML 1,000 ML IV SCH ×2 (03:44→08:33)
[2021-05-05] MEDS ORDERED: INSULIN GLARGINE SOLOSTAR 100 UNITS/ML 3 ML PEN SC SCH ×2 (05:45)
--- NOTE | 2021-05-05 07:33 | Hospitalist Progress Note ---
Date of Service May 05, 2021 Assessment & Plan Admission and Anticipated Discharge Date Admission Date: May 04, 2021 Subjective Patient found to be in DKA. Started on insulin drip and followup labs as per dka protocol.Pharmacy consulted. Results & Data Results & Data ([facility]) Vital Signs (Past 12 Hours) Vital Signs Temp Pulse Pulse Resp BP Pulse Ox 05/05/21 02:57 36.8 C 96 H 20 120/70 97 05/05/21 01:55 36.7 C 88 18 168/79 H 99 05/05/21 01:52 104 H 05/05/21 00:01 36.6 C 114 H 24 102/67 96 05/04/21 20:00 89
[2021-05-05] MEDS: INSULIN ASPART 100 UNITS/ML 3 ML PEN SC SCH ×4 (08:00→22:09)
[2021-05-05] MEDS: MoRPHine SULFATE 4 MG/ML 1 ML CARP\\VIAL IV PRN ×2 (08:06→12:02)
[2021-05-05] MEDS: ESCITALOPRAM OXALATE 20 MG TAB PO SCH ×2 (08:10→08:20)
[2021-05-05] MEDS: GABAPENTIN 300 MG CAP PO SCH ×3 (08:12→21:01)
[2021-05-05 08:16] LABS: BUN Creatinine Ratio 13.7 (10-20); Calcium 8.6 mg/dl (8.5-10.1); Creatinine Clr Calc Pharmacy 71.3 ml/min; Est GFR (African American) 92.4 ml/min; Est GFR (Non-African American) 79.7 ml/min; Magnesium 2.1 mg/dl (1.8-2.4); Potassium 4.1 mmol/L (3.5-5.1)
[2021-05-05 08:27] LABS: Phosphorus 2.1 mg/dl (2.5-4.9)
--- NOTE | 2021-05-05 09:47 | Electrocardiogram Report ---
Test Reason : Blood Pressure : / mmHG Vent. Rate : 101 BPM Atrial Rate : 101 BPM P-R Int : 162 ms QRS Dur : 102 ms QT Int : 394 ms P-R-T Axes : 080 066 069 degrees QTc Int : 510 ms Sinus tachycardia Otherwise normal ECG When compared with ECG of 27-NOV-2011 20:08, QT has lengthened Confirmed by Dinesh Lockett ([id number]) on 05/05/2021 9:46:35 AM Referred By: REFERRED SELF Confirmed By:Dinesh Lockett
--- NOTE | 2021-05-05 10:30 | Gastrointestinal Consultation ---
Date of Consultation May 05, 2021 Assessment & Plan (1) Abdominal pain: (2) DKA (diabetic ketoacidosis): Continue Insulin gtt as per primary team Continue supportive care (3) Chronic pancreatitis: Discussed need to abstain from all alcohol as it is a known pancreatic toxin Will need outpatient followup for further evaluation Continue supportive care Continue Pancreatic enzyme therapy and PPI Advance diet as per primary team due to DKA, but no criteria for acute pancreatitis to limit timing of diet (4) Abnormal CT of the abdomen: Will need outpatient colonoscopy when acute issues resolve Consider CT abd/pelvis with PO contrast if patient refuses colonoscopy History of Present Illness Reason for Consultation: Questionable colon mass on CT imaging Chronic pancreatitis Attending Physician: Anibal May MD History of Present Illness Josh Alicia is a 60 yo CM with a PMHx including polysubstance abuse, uncontrolled DM, and chronic pancreatitis who presented to the ER with complaints of nausea, vomiting, diarrhea and abdominal pain. He states that the day prior to admission he drank approximately a fifth of alcohol. Upon arrival to the ER, he was noted to have an AG metabolic acidosis from uncontrolled DM an d CT imaging which showed evidence of chronic pancreatitis with a questionable partial large bowel obstruction from a colonic mass. Of note, there was no evidence of acute pancreatitis on CT imaging, and his lipase level was normal in the ER. He was subsequently admitted and started on an insulin gtt, aggressive IVF hydration, kept NPO, and given narcotic analgesics and antiemetics as needed. At the time I saw the patient, he continued to complain of moderate epigastric pain, radiating to his back. He described the pain as an ache, without exacerbating factors. He denies any further nausea after receiving Zofran in the ER. He states that he has not had any further diarrhea, and has not seen any melena or hematochezia. He denies any further complaints. Allergies Allergy/AdvReac Type Severity Reaction Status Date / Time trazodone AdvReac Severe PRIAPISM Verified 05/04/21 10:35 Home Medications Medication Instructions Recorded Confirmed Type Novolog U-100 Insulin aspart 5 units SUBCUT TIDM 05/04/21 05/04/21 History amitriptyline 75 mg tablet 75 mg PO HS 05/04/21 05/04/21 History clonazepam 0.5 mg tablet 1 mg PO DAILY 05/04/21 05/04/21 History docusate sodium 100 mg capsule 100 mg PO BID 05/04/21 05/04/21 History (Colace) escitalopram oxalate 20 mg PO DAILY 05/04/21 05/04/21 History gabapentin 400 mg capsule 600 mg PO TID 05/04/21 05/04/21 History glipizide 5 mg tablet 5 mg PO BID 05/04/21 05/04/21 History insulin glargine 100 unit/mL (3 25 unit SUBCUT BID 05/04/21 05/04/21 History mL) subcutaneous pen (Lantus Solostar U-100 Insulin) lipase 4,200-protease 1 cap PO TIDM 05/04/21 05/04/21 History 14,200-amylase 24,600 unit capsule,delayed rel (Pancreaze) pantoprazole 40 mg tablet,delayed 40 mg PO DAILY 05/04/21 05/04/21 History release (Protonix) quetiapine 400 mg tablet (Seroquel) 400 mg PO HS 05/04/21 05/04/21 History Patient History Medical History Alcohol dependence Chronic pain syndrome Chronic pancreatitis Diabetes mellitus type 1 Severe major depression, single episode, without psychotic features Surgical History S/P appendectomy S/P ERCP Social History Smoking Status: Current every day smoker Cigarettes Per Day: 1/2 ppd; Second Hand Exposure: Yes; Do You Dip or Chew Tobacco: No; Hx Alcohol Use: Yes Alcohol type: hard liquor Hx Substance Use: No Preferred Language: [place] Communication Ability: Effective Lute Packer Or Applier Required: No Beliefs That Will Affect Care: None Current Living Situation: Family Current Living Situation Comment: Daughter Other Information That Helps Us Care for You: No Feels Safe at Home: Yes Safety Concerns: Feels Safe At This Time Assistive Devices: None Review of Systems Constitutional: as per Subjective / HPI Eyes: as per Subjective / HPI Ear, Nose, Mouth, Throat: as per Subjective / HPI Respiratory: as per Subjective / HPI Cardiovascular: as per Subjective / HPI Gastrointestinal: as per Subjective / HPI Musculoskeletal: as per Subjective / HPI Integumentary: as per Subjective / HPI Neurologic: as per Subjective / HPI Psychiatric: as per Subjective / HPI Endocrine: as per Subjective / HPI Hematologic / Lymphatic: as per Subjective / HPI Allergy / Immunological: as per Subjective / HPI Physical Exam Constitutional: + ill appearing; no acute distress Eyes: + anicteric sclerae ENMT: external ear and nose normal, oropharynx normal Neck: normal visual inspection Respiratory: normal respiratory effort, lungs clear to auscultation Cardiovascular: RRR, no murmur, no edema Gastrointestinal (Abdomen): normal bowel sounds, soft, nontender, no hepatosplenomegaly Skin: no rashes, warm and dry Psychiatric: A+Ox3, euthymic affect Results & Data ([facility]) Vital Signs (Past 12 Hours) Vital Signs Temp Pulse Pulse Resp BP Pulse Ox 05/05/21 08:11 36.5 C 98 H 12 152/76 H 95 05/05/21 02:57 36.8 C 96 H 20 120/70 97 05/05/21 01:55 36.7 C 88 18 168/79 H 99 05/05/21 01:52 104 H 05/05/21 00:01 36.6 C 114 H 24 102/67 96 PG Care Time/CCT Total # of Minutes Spent Total Time Spent with Patient: Total time spent is greater than 50% in coordination of care (as documented) at patient's floor/unit and/or counseling patient: Coding Level of Care Code 13938 Inpt Consult Level 4 Diagnoses Abdominal pain R10.9 DKA (diabetic ketoacidosis) E13.10 Diabetes mellitus complication detail: without coma Diabetes mellitus type: other specified (including KARAN) Chronic pancreatitis K86.[address] of the abdomen R93.5 (1) DKA (diabetic ketoacidosis) Diabetes mellitus complication detail: without coma Diabetes mellitus type: other specified (including KARAN) Qualified Code(s): E13.10 - Other specified diabetes mellitus with ketoacidosis without coma
[2021-05-05] MEDS: NICOTINE 21 MG/24 HR TDSY TD SCH (10:31)
[2021-05-05] MEDS: D5W AND 1/2NSS + 20MEQ KCL 20 MEQ/1,000 ML BAG IV SCH ×3 (10:33→20:10)
--- NOTE | 2021-05-05 10:35 | Pharmacy Report ---
Pharmacy Glycemic Short Note 2 - Date of Service May 05, 2021 - Glycemic Short BSG Results (Last 24 hours): 05/04/21 05/04/21 05/04/21 10:25 20:52 20:54 Glucose 361 H* POC Glucose 451 H* 423 H* 05/04/21 05/04/21 05/04/21 22:41 22:48 23:10 Glucose 279 H POC Glucose 282 H 225 H 05/04/21 05/05/21 05/05/21 23:55 00:15 01:09 Glucose POC Glucose 139 H 120 H 143 H 05/05/21 05/05/21 05/05/21 01:35 01:41 02:08 Glucose 146 H POC Glucose 173 H 155 H 05/05/21 05/05/21 05/05/21 02:19 02:42 03:09 Glucose POC Glucose 166 H 167 H 161 H 05/05/21 05/05/21 05/05/21 03:46 05:20 07:26 Glucose POC Glucose 188 H 195 H 189 H 05/05/21 07:48 Glucose 205 H POC Glucose OUTPATIENT ANTIDIABETIC REGIMEN: * glipizide 5 mg BID * Lantus 25 units BID * Novolog 5 units TIDM ASSESSMENT: * Mr Alicia is a 60 y/o M with a PMH of T2DM who presents with pancreatitis. Patient found to be in DKA and started on insulin infusion. * Insulin infusion stopped at midnight. * Lantus 15 units given last night and 10 units given this morning. * Morning PRP indicated patient's gap was widening again so insulin infusion restarted along with D5 to maintain insulin infusion. * Patient is NPO. * Will continue with insulin infusion at this time since patient is critically ill and NPO. Insulin requirements at this time are unclear. PLAN FOR INPATIENT GLYCEMIC CONTROL: * Hold outpatient oral diabetes medications * Insulin infusion per calculator. PLAN FOR DISCHARGE: * TBD, HbA1C ordered
[2021-05-05] MEDS: PANTOprazole 40 MG in SYRINGE 0 ML IV SCH ×2 (10:36→20:10)
[2021-05-05] MEDS: THIAMINE HCL 100 MG in SYRINGE 9 ML IV SCH (10:36)
[2021-05-05] MEDS: clonazePAM 1 MG TAB PO SCH (10:36)
[2021-05-05] MEDS: FOLIC ACID 1 MG in SYRINGE 9.8 ML IV SCH (10:36)
[2021-05-05 10:39] LABS: BUN Creatinine Ratio 14.2 (10-20); Calcium 8.4 mg/dl (8.5-10.1); Est GFR (African American) 98.1 ml/min; Est GFR (Non-African American) 84.6 ml/min; Potassium 4.1 mmol/L (3.5-5.1)
[2021-05-05 11:30] LABS: Phosphorus 1.6 mg/dl (2.5-4.9)
[2021-05-05] MEDS ORDERED: POTASSIUM PHOS 3 MMOL/1 ML INFUSION IV STA ×2 (12:01→16:31)
[2021-05-05] MEDS ORDERED: POTASSIUM PHOSPHATE 21 MMOL in SODIUM CHLORIDE 0.9% 500 ML IV ONE (12:15)
[2021-05-05] MEDS ORDERED: HYDROmorphone INJ 0.5 MG/0.5 ML SYR IM PRN (13:38)
[2021-05-05 15:22] LABS: BUN Creatinine Ratio 12.5 (10-20); Calcium 8.3 mg/dl (8.5-10.1); Creatinine Clr Calc Pharmacy 73.5 ml/min; Est GFR (African American) 95.7 ml/min; Est GFR (Non-African American) 82.6 ml/min
[2021-05-05 15:36] LABS: Phosphorus 1.3 mg/dl (2.5-4.9)
--- NOTE | 2021-05-05 16:41 | Hospitalist Progress Note ---
Date of Service May 05, 2021 Assessment & Plan (1) Abdominal pain: (2) Nausea & vomiting: (3) Hyperglycemia: Plan: Abd pain, N/V: -likely 2/2 Pancreatitis vs partial Large bowel obstruction -CT abd 1. There is abrupt caliber change seen within the distal transverse colon. The colon proximal to this location is mildly dilated and filled with gas and stool. Therefore, this could be transient or possibly represent a partial large bowel obstruction with the transition point located at the distal transverse colon. Given the abrupt caliber change, a colonic lesion cannot be excluded. Follow-up colonoscopy is recommended for further evaluation. 2. Chronic pancreatitis, unchanged. No evidence for acute pancreatitis at this time. 3. Hepatic steatosis. 4. Mildly distended gas and fluid-filled stomach. However, no evidence for gastric outlet obstruction. GI and Gen. surgery consulted Per surgery Pt does not appear to be completely obstructed No surgical intervention indicated at this time Recommend direct visualization with colonoscopy, if not able to perform then would recommend repeat CT scan with oral contrast given the time to reach the colon Per GI Will need outpatient followup for further evaluation of chronic pancreatitis Continue Pancreatic enzyme therapy and PPI Advance diet as per primary team due to DKA, but no criteria for acute pancreatitis to limit timing of diet Will need outpatient colonoscopy when acute issues resolve Consider CT abd/pelvis with PO contrast if patient refuses colonoscopy - NPO since admission, will try clear liquid diet now (05/05) - Hgb in the hospital better than clinic hgb (hemoconcentrated?) -on 10.4 in 03/2021 and on admission 12.8 - current Hgb 12.0 -due to hx of blood in the vomit will trend H/H, GI consulted , cont. IV PPI -SCD for DVT ppx -WBC mildly elevated on admission 12.2K, now doen to 7.4K (after IV fluids and treatment of DKA); normal UA, afebrile DKA, Hyperglycemia: -pt did not take his insulin for 2 days -glucose on admission 361 - receiving 1 bolus NS - started on IV insulin, Glycemic pharmacy consulted - replace electrolytes, cont. IVF Chronic pain syndrome with methadone tx -methadone prescribed by Dr. Neal Gee -last took medication 2 weeks ago per pt but it looks like he has not taken the meds for > 1 month on PDMP -for now will manage pain with morphine vs dilaudid ETOH abuse: -last use on 05/03 -will start the pt on ETOH withdrawal protocol - pt already on gabapentin 600mg TID -IV thiamine, folic acid -Monitor for withdrawal symptoms Elevated BP: -no hx of HTN - for now will manage with labetalol prn Depression/anxiety: -c/w home meds Diet: NPO - will try clear liquid diet DVT PPx: due to possible blood in the vomit SCDs Code Status:FULL CODE Emergency Contact: Daughter Aggie: [phone] Admission and Anticipated Discharge Date Admission Date: May 04, 2021 Subjective Patient seen in follow-up of nausea vomiting, abdominal pain, secondary to pancreatitis, DKA, and possible bowel obstruction Currently sitting up in bed, in no acute distress Denies fevers, chills, chest pain shortness of breath Continues to have abdominal pain, mostly in epigastric area says that he was vomiting at home, however no more vomiting now When EMS took him he reports that vomitus was bloody He had some diarrhea at home, no BM now Says that he actually feels hungry, will try clear liquid diet, and see how he tolerates it Review of Systems Review of Systems: All systems reviewed & are unremarkable except as noted in Subjective Physical Exam Physical Exam: General:. thin male sitting up in bed, in NAD HEENT:. NC/AT, EOMI, PERRL, poor dentition, Sclera is non-icteric Lungs:. No signs of respiratory distress, CTA, no wheezing or crackles Heart:. Normal S1, S2, no murmur Abdominal:+ abd pain to palpation (epigastric), ND, Soft, + BS MSK:. No LE edema, moves extremities Skin:. no rash or open wound Psych:. AAOx3, normal affect Results & Data Results & Data ([facility]) Vital Signs (Past 12 Hours) Vital Signs Temp Pulse Pulse Resp BP Pulse Ox 05/05/21 15:14 36.9 C 79 18 160/79 H 99 05/05/21 12:17 36.8 C 74 16 154/72 H 97 05/05/21 08:11 36.5 C 98 H 12 152/76 H 95 05/05/21 07:00 88 Laboratory Results 05/05/21 05/05/21 05/05/21 Range/Units 15:52 15:45 14:51 WBC (4.8-10.8) K/uL RBC (4.7-6.1) M/uL Hgb (14.0-18.0) g/dL Hct (42-52) % MCV (80-100) fL MCH (25-34) pg MCHC (32-36) g/dL RDW Std Deviation (36.4-46.3) fL RDW Coeff of Nils (11.5-14.5) % Plt Count (130-400) K/uL MPV (7.4-10.4) fL Immature Gran % (Auto) % Neut % (Auto) % Lymph % (Auto) % [place] % (Auto) % Eos % (Auto) % Baso % (Auto) % Neut # (Auto) (1.4-6.5) K/uL Lymph # (Auto) (1.2-3.4) K/uL [place] # (Auto) (0.11-0.59) K/uL Eos # (Auto) (0-0.5) K/uL Baso # (Auto) (0-0.2) K/uL Immature Gran # (Auto) (0.00-0.02) K/uL VBG pH 7.45 H Cancelled (7.36-7.41) Sodium (136-145) mmol/L Potassium (3.5-5.1) mmol/L Chloride (98-107) mmol/L Carbon Dioxide (21-32) mmol/L Anion Gap (3-11) BUN (7-18) mg/dl Creatinine (0.6-1.4) mg/dl Est Cr Clr Drug Dosing ml/min Est GFR ( Amer) ml/min Est GFR (Non-Af Amer) ml/min BUN/Creatinine Ratio (10-20) Glucose (70-99) mg/dl POC Glucose 216 H (70-99) mg/dl Estimat Average Glucose Hemoglobin A1c Calcium (8.5-10.1) mg/dl Phosphorus (2.5-4.9) mg/dl Magnesium (1.8-2.4) mg/dl Total Bilirubin (0.2-1) mg/dl AST (15-37) U/L ALT (12-78) U/L Alkaline Phosphatase (45-117) U/L Total Protein (6.4-8.2) gm/dl Albumin (3.4-5.0) gm/dl Globulin (2.5-4.0) gm/dl Albumin/Globulin Ratio (0.9-2) Vitamin B12 (193-986) pg/ml Folate (>5.38) ng/ml Urine Opiates Screen (Neg) U Codeine Confrm GC/MS Ur Morphine (GC/MS) Ur Hydrocodone (GC/MS) Ur Norhydrocodone Ur Noroxycodone Urine Oxycodone (GC/MS) U Oxymorphone GC/MS Ur Methadone, Qual (Neg) U Methadone Metabolites Ur Methadone Confirm Ur Hydromorphone (GC/MS) Urine Barbiturates (Neg) Ur Phencyclidine (PCP) (Neg) U Amphetamin/Meth Scrn (Neg) MDMA (Ecstasy) Screen (Neg) U Benzodiazepines Scrn (Neg) Ur Cocaine Metabolite (Neg) U Marijuana (THC) Screen (Neg) Drug Screen Comment 05/05/21 05/05/21 05/05/21 Range/Units 14:51 14:44 13:27 WBC (4.8-10.8) K/uL RBC (4.7-6.1) M/uL Hgb (14.0-18.0) g/dL Hct (42-52) % MCV (80-100) fL MCH (25-34) pg MCHC (32-36) g/dL RDW Std Deviation (36.4-46.3) fL RDW Coeff of Nils (11.5-14.5) % Plt Count (130-400) K/uL MPV (7.4-10.4) fL Immature Gran % (Auto) % Neut % (Auto) % Lymph % (Auto) % [place] % (Auto) % Eos % (Auto) % Baso % (Auto) % Neut # (Auto) (1.4-6.5) K/uL Lymph # (Auto) (1.2-3.4) K/uL [place] # (Auto) (0.11-0.59) K/uL Eos # (Auto) (0-0.5) K/uL Baso # (Auto) (0-0.2) K/uL Immature Gran # (Auto) (0.00-0.02) K/uL VBG pH (7.36-7.41) Sodium 135 L (136-145) mmol/L Potassium 4.0 (3.5-5.1) mmol/L Chloride 106 (98-107) mmol/L Carbon Dioxide 21 (21-32) mmol/L Anion Gap 8.0 (3-11) BUN 13 (7-18) mg/dl Creatinine 1.00 (0.6-1.4) mg/dl Est Cr Clr Drug Dosing 73.5 ml/min Est GFR ( Amer) 95.7 ml/min Est GFR (Non-Af Amer) 82.6 ml/min BUN/Creatinine Ratio 12.5 (10-20) Glucose 254 H (70-99) mg/dl POC Glucose 249 H 271 H (70-99) mg/dl Estimat Average Glucose Hemoglobin A1c Calcium 8.3 L (8.5-10.1) mg/dl Phosphorus 1.3 L* (2.5-4.9) mg/dl Magnesium 2.0 (1.8-2.4) mg/dl Total Bilirubin (0.2-1) mg/dl AST (15-37) U/L ALT (12-78) U/L Alkaline Phosphatase (45-117) U/L Total Protein (6.4-8.2) gm/dl Albumin (3.4-5.0) gm/dl Globulin (2.5-4.0) gm/dl Albumin/Globulin Ratio (0.9-2) Vitamin B12 (193-986) pg/ml Folate (>5.38) ng/ml Urine Opiates Screen (Neg) U Codeine Confrm GC/MS Ur Morphine (GC/MS) Ur Hydrocodone (GC/MS) Ur Norhydrocodone Ur Noroxycodone Urine Oxycodone (GC/MS) U Oxymorphone GC/MS Ur Methadone, Qual (Neg) U Methadone Metabolites Ur Methadone Confirm Ur Hydromorphone (GC/MS) Urine Barbiturates (Neg) Ur Phencyclidine (PCP) (Neg) U Amphetamin/Meth Scrn (Neg) MDMA (Ecstasy) Screen (Neg) U Benzodiazepines Scrn (Neg) Ur Cocaine Metabolite (Neg) U Marijuana (THC) Screen (Neg) Drug Screen Comment 05/05/21 05/05/21 05/05/21 Range/Units 12:11 11:55 10:50 WBC (4.8-10.8) K/uL RBC (4.7-6.1) M/uL Hgb (14.0-18.0) g/dL Hct (42-52) % MCV (80-100) fL MCH (25-34) pg MCHC (32-36) g/dL RDW Std Deviation (36.4-46.3) fL RDW Coeff of Nils (11.5-14.5) % Plt Count (130-400) K/uL MPV (7.4-10.4) fL Immature Gran % (Auto) % Neut % (Auto) % Lymph % (Auto) % [place] % (Auto) % Eos % (Auto) % Baso % (Auto) % Neut # (Auto) (1.4-6.5) K/uL Lymph # (Auto) (1.2-3.4) K/uL [place] # (Auto) (0.11-0.59) K/uL Eos # (Auto) (0-0.5) K/uL Baso # (Auto) (0-0.2) K/uL Immature Gran # (Auto) (0.00-0.02) K/uL VBG pH 7.39 (7.36-7.41) Sodium (136-145) mmol/L Potassium (3.5-5.1) mmol/L Chloride (98-107) mmol/L Carbon Dioxide (21-32) mmol/L Anion Gap (3-11) BUN (7-18) mg/dl Creatinine (0.6-1.4) mg/dl Est Cr Clr Drug Dosing ml/min Est GFR ( Amer) ml/min Est GFR (Non-Af Amer) ml/min BUN/Creatinine Ratio (10-20) Glucose (70-99) mg/dl POC Glucose 229 H 273 H (70-99) mg/dl Estimat Average Glucose Hemoglobin A1c Calcium (8.5-10.1) mg/dl Phosphorus (2.5-4.9) mg/dl Magnesium (1.8-2.4) mg/dl Total Bilirubin (0.2-1) mg/dl AST (15-37) U/L ALT (12-78) U/L Alkaline Phosphatase (45-117) U/L Total Protein (6.4-8.2) gm/dl Albumin (3.4-5.0) gm/dl Globulin (2.5-4.0) gm/dl Albumin/Globulin Ratio (0.9-2) Vitamin B12 (193-986) pg/ml Folate (>5.38) ng/ml Urine Opiates Screen (Neg) U Codeine Confrm GC/MS Ur Morphine (GC/MS) Ur Hydrocodone (GC/MS) Ur Norhydrocodone Ur Noroxycodone Urine Oxycodone (GC/MS) U Oxymorphone GC/MS Ur Methadone, Qual (Neg) U Methadone Metabolites Ur Methadone Confirm Ur Hydromorphone (GC/MS) Urine Barbiturates (Neg) Ur Phencyclidine (PCP) (Neg) U Amphetamin/Meth Scrn (Neg) MDMA (Ecstasy) Screen (Neg) U Benzodiazepines Scrn (Neg) Ur Cocaine Metabolite (Neg) U Marijuana (THC) Screen (Neg) Drug Screen Comment 05/05/21 05/05/21 05/05/21 Range/Units 10:07 10:07 07:48 WBC (4.8-10.8) K/uL RBC (4.7-6.1) M/uL Hgb (14.0-18.0) g/dL Hct (42-52) % MCV (80-100) fL MCH (25-34) pg MCHC (32-36) g/dL RDW Std Deviation (36.4-46.3) fL RDW Coeff of Nils (11.5-14.5) % Plt Count (130-400) K/uL MPV (7.4-10.4) fL Immature Gran % (Auto) % Neut % (Auto) % Lymph % (Auto) % [place] % (Auto) % Eos % (Auto) % Baso % (Auto) % Neut # (Auto) (1.4-6.5) K/uL Lymph # (Auto) (1.2-3.4) K/uL [place] # (Auto) (0.11-0.59) K/uL Eos # (Auto) (0-0.5) K/uL Baso # (Auto) (0-0.2) K/uL Immature Gran # (Auto) (0.00-0.02) K/uL VBG pH Cancelled 7.35 L (7.36-7.41) Sodium 129 L (136-145) mmol/L Potassium 4.1 (3.5-5.1) mmol/L Chloride 103 (98-107) mmol/L Carbon Dioxide 15 L (21-32) mmol/L Anion Gap 11.0 (3-11) BUN 14 (7-18) mg/dl Creatinine 0.98 (0.6-1.4) mg/dl Est Cr Clr Drug Dosing 75.0 ml/min Est GFR ( Amer) 98.1 ml/min Est GFR (Non-Af Amer) 84.6 ml/min BUN/Creatinine Ratio 14.2 (10-20) Glucose 266 H (70-99) mg/dl POC Glucose (70-99) mg/dl Estimat Average Glucose Hemoglobin A1c Calcium 8.4 L (8.5-10.1) mg/dl Phosphorus 1.6 L (2.5-4.9) mg/dl Magnesium 2.0 (1.8-2.4) mg/dl Total Bilirubin (0.2-1) mg/dl AST (15-37) U/L ALT (12-78) U/L Alkaline Phosphatase (45-117) U/L Total Protein (6.4-8.2) gm/dl Albumin (3.4-5.0) gm/dl Globulin (2.5-4.0) gm/dl Albumin/Globulin Ratio (0.9-2) Vitamin B12 (193-986) pg/ml Folate (>5.38) ng/ml Urine Opiates Screen (Neg) U Codeine Confrm GC/MS Ur Morphine (GC/MS) Ur Hydrocodone (GC/MS) Ur Norhydrocodone Ur Noroxycodone Urine Oxycodone (GC/MS) U Oxymorphone GC/MS Ur Methadone, Qual (Neg) U Methadone Metabolites Ur Methadone Confirm Ur Hydromorphone (GC/MS) Urine Barbiturates (Neg) Ur Phencyclidine (PCP) (Neg) U Amphetamin/Meth Scrn (Neg) MDMA (Ecstasy) Screen (Neg) U Benzodiazepines Scrn (Neg) Ur Cocaine Metabolite (Neg) U Marijuana (THC) Screen (Neg) Drug Screen Comment 05/05/21 05/05/21 05/05/21 Range/Units 07:48 07:26 05:20 WBC (4.8-10.8) K/uL RBC (4.7-6.1) M/uL Hgb (14.0-18.0) g/dL Hct (42-52) % MCV (80-100) fL MCH (25-34) pg MCHC (32-36) g/dL RDW Std Deviation (36.4-46.3) fL RDW Coeff of Nils (11.5-14.5) % Plt Count (130-400) K/uL MPV (7.4-10.4) fL Immature Gran % (Auto) % Neut % (Auto) % Lymph % (Auto) % [place] % (Auto) % Eos % (Auto) % Baso % (Auto) % Neut # (Auto) (1.4-6.5) K/uL Lymph # (Auto) (1.2-3.4) K/uL [place] # (Auto) (0.11-0.59) K/uL Eos # (Auto) (0-0.5) K/uL Baso # (Auto) (0-0.2) K/uL Immature Gran # (Auto) (0.00-0.02) K/uL VBG pH (7.36-7.41) Sodium 134 L (136-145) mmol/L Potassium 4.1 (3.5-5.1) mmol/L Chloride 104 (98-107) mmol/L Carbon Dioxide 17 L (21-32) mmol/L Anion Gap 12.0 H (3-11) BUN 14 (7-18) mg/dl Creatinine 1.03 (0.6-1.4) mg/dl Est Cr Clr Drug Dosing 71.3 ml/min Est GFR ( Amer) 92.4 ml/min Est GFR (Non-Af Amer) 79.7 ml/min BUN/Creatinine Ratio 13.7 (10-20) Glucose 205 H (70-99) mg/dl POC Glucose 189 H 195 H (70-99) mg/dl Estimat Average Glucose Hemoglobin A1c Calcium 8.6 (8.5-10.1) mg/dl Phosphorus 2.1 L (2.5-4.9) mg/dl Magnesium 2.1 (1.8-2.4) mg/dl Total Bilirubin (0.2-1) mg/dl AST (15-37) U/L ALT (12-78) U/L Alkaline Phosphatase (45-117) U/L Total Protein (6.4-8.2) gm/dl Albumin (3.4-5.0) gm/dl Globulin (2.5-4.0) gm/dl Albumin/Globulin Ratio (0.9-2) Vitamin B12 (193-986) pg/ml Folate (>5.38) ng/ml Urine Opiates Screen (Neg) U Codeine Confrm GC/MS Ur Morphine (GC/MS) Ur Hydrocodone (GC/MS) Ur Norhydrocodone Ur Noroxycodone Urine Oxycodone (GC/MS) U Oxymorphone GC/MS Ur Methadone, Qual (Neg) U Methadone Metabolites Ur Methadone Confirm Ur Hydromorphone (GC/MS) Urine Barbiturates (Neg) Ur Phencyclidine (PCP) (Neg) U Amphetamin/Meth Scrn (Neg) MDMA (Ecstasy) Screen (Neg) U Benzodiazepines Scrn (Neg) Ur Cocaine Metabolite (Neg) U Marijuana (THC) Screen (Neg) Drug Screen Comment 05/05/21 05/05/21 05/05/21 Range/Units 03:46 03:09 02:42 WBC (4.8-10.8) K/uL RBC (4.7-6.1) M/uL Hgb (14.0-18.0) g/dL Hct (42-52) % MCV (80-100) fL MCH (25-34) pg MCHC (32-36) g/dL RDW Std Deviation (36.4-46.3) fL RDW Coeff of Nils (11.5-14.5) % Plt Count (130-400) K/uL MPV (7.4-10.4) fL Immature Gran % (Auto) % Neut % (Auto) % Lymph % (Auto) % [place] % (Auto) % Eos % (Auto) % Baso % (Auto) % Neut # (Auto) (1.4-6.5) K/uL Lymph # (Auto) (1.2-3.4) K/uL [place] # (Auto) (0.11-0.59) K/uL Eos # (Auto) (0-0.5) K/uL Baso # (Auto) (0-0.2) K/uL Immature Gran # (Auto) (0.00-0.02) K/uL VBG pH (7.36-7.41) Sodium (136-145) mmol/L Potassium (3.5-5.1) mmol/L Chloride (98-107) mmol/L Carbon Dioxide (21-32) mmol/L Anion Gap (3-11) BUN (7-18) mg/dl Creatinine (0.6-1.4) mg/dl Est Cr Clr Drug Dosing ml/min Est GFR ( Amer) ml/min Est GFR (Non-Af Amer) ml/min BUN/Creatinine Ratio (10-20) Glucose (70-99) mg/dl POC Glucose 188 H 161 H 167 H (70-99) mg/dl Estimat Average Glucose Hemoglobin A1c Calcium (8.5-10.1) mg/dl Phosphorus (2.5-4.9) mg/dl Magnesium (1.8-2.4) mg/dl Total Bilirubin (0.2-1) mg/dl AST (15-37) U/L ALT (12-78) U/L Alkaline Phosphatase (45-117) U/L Total Protein (6.4-8.2) gm/dl Albumin (3.4-5.0) gm/dl Globulin (2.5-4.0) gm/dl Albumin/Globulin Ratio (0.9-2) Vitamin B12 (193-986) pg/ml Folate (>5.38) ng/ml Urine Opiates Screen (Neg) U Codeine Confrm GC/MS Ur Morphine (GC/MS) Ur Hydrocodone (GC/MS) Ur Norhydrocodone Ur Noroxycodone Urine Oxycodone (GC/MS) U Oxymorphone GC/MS Ur Methadone, Qual (Neg) U Methadone Metabolites Ur Methadone Confirm Ur Hydromorphone (GC/MS) Urine Barbiturates (Neg) Ur Phencyclidine (PCP) (Neg) U Amphetamin/Meth Scrn (Neg) MDMA (Ecstasy) Screen (Neg) U Benzodiazepines Scrn (Neg) Ur Cocaine Metabolite (Neg) U Marijuana (THC) Screen (Neg) Drug Screen Comment 05/05/21 05/05/21 05/05/21 Range/Units 02:19 02:08 01:49 WBC (4.8-10.8) K/uL RBC (4.7-6.1) M/uL Hgb (14.0-18.0) g/dL Hct (42-52) % MCV (80-100) fL MCH (25-34) pg MCHC (32-36) g/dL RDW Std Deviation (36.4-46.3) fL RDW Coeff of Nils (11.5-14.5) % Plt Count (130-400) K/uL MPV (7.4-10.4) fL Immature Gran % (Auto) % Neut % (Auto) % Lymph % (Auto) % [place] % (Auto) % Eos % (Auto) % Baso % (Auto) % Neut # (Auto) (1.4-6.5) K/uL Lymph # (Auto) (1.2-3.4) K/uL [place] # (Auto) (0.11-0.59) K/uL Eos # (Auto) (0-0.5) K/uL Baso # (Auto) (0-0.2) K/uL Immature Gran # (Auto) (0.00-0.02) K/uL VBG pH 7.41 (7.36-7.41) Sodium (136-145) mmol/L Potassium (3.5-5.1) mmol/L Chloride (98-107) mmol/L Carbon Dioxide (21-32) mmol/L Anion Gap (3-11) BUN (7-18) mg/dl Creatinine (0.6-1.4) mg/dl Est Cr Clr Drug Dosing ml/min Est GFR ( Amer) ml/min Est GFR (Non-Af Amer) ml/min BUN/Creatinine Ratio (10-20) Glucose (70-99) mg/dl POC Glucose 166 H 155 H (70-99) mg/dl Estimat Average Glucose Hemoglobin A1c Calcium (8.5-10.1) mg/dl Phosphorus (2.5-4.9) mg/dl Magnesium (1.8-2.4) mg/dl Total Bilirubin (0.2-1) mg/dl AST (15-37) U/L ALT (12-78) U/L Alkaline Phosphatase (45-117) U/L Total Protein (6.4-8.2) gm/dl Albumin (3.4-5.0) gm/dl Globulin (2.5-4.0) gm/dl Albumin/Globulin Ratio (0.9-2) Vitamin B12 (193-986) pg/ml Folate (>5.38) ng/ml Urine Opiates Screen (Neg) U Codeine Confrm GC/MS Ur Morphine (GC/MS) Ur Hydrocodone (GC/MS) Ur Norhydrocodone Ur Noroxycodone Urine Oxycodone (GC/MS) U Oxymorphone GC/MS Ur Methadone, Qual (Neg) U Methadone Metabolites Ur Methadone Confirm Ur Hydromorphone (GC/MS) Urine Barbiturates (Neg) Ur Phencyclidine (PCP) (Neg) U Amphetamin/Meth Scrn (Neg) MDMA (Ecstasy) Screen (Neg) U Benzodiazepines Scrn (Neg) Ur Cocaine Metabolite (Neg) U Marijuana (THC) Screen (Neg) Drug Screen Comment 05/05/21 05/05/21 05/05/21 Range/Units 01:41 01:35 01:35 WBC (4.8-10.8) K/uL RBC (4.7-6.1) M/uL Hgb (14.0-18.0) g/dL Hct (42-52) % MCV (80-100) fL MCH (25-34) pg MCHC (32-36) g/dL RDW Std Deviation (36.4-46.3) fL RDW Coeff of Nils (11.5-14.5) % Plt Count (130-400) K/uL MPV (7.4-10.4) fL Immature Gran % (Auto) % Neut % (Auto) % Lymph % (Auto) % [place] % (Auto) % Eos % (Auto) % Baso % (Auto) % Neut # (Auto) (1.4-6.5) K/uL Lymph # (Auto) (1.2-3.4) K/uL [place] # (Auto) (0.11-0.59) K/uL Eos # (Auto) (0-0.5) K/uL Baso # (Auto) (0-0.2) K/uL Immature Gran # (Auto) (0.00-0.02) K/uL VBG pH (7.36-7.41) Sodium 132 L (136-145) mmol/L Potassium 3.8 (3.5-5.1) mmol/L Chloride 105 (98-107) mmol/L Carbon Dioxide 19 L (21-32) mmol/L Anion Gap 8.0 (3-11) BUN 16 (7-18) mg/dl Creatinine 1.04 (0.6-1.4) mg/dl Est Cr Clr Drug Dosing 70.6 ml/min Est GFR ( Amer) 91.3 ml/min Est GFR (Non-Af Amer) 78.8 ml/min BUN/Creatinine Ratio 15.6 (10-20) Glucose 146 H (70-99) mg/dl POC Glucose 173 H (70-99) mg/dl Estimat Average Glucose Hemoglobin A1c Calcium 8.4 L (8.5-10.1) mg/dl Phosphorus 2.8 (2.5-4.9) mg/dl Magnesium 2.0 (1.8-2.4) mg/dl Total Bilirubin 0.7 (0.2-1) mg/dl AST 23 (15-37) U/L ALT 25 (12-78) U/L Alkaline Phosphatase 100 (45-117) U/L Total Protein 6.2 L (6.4-8.2) gm/dl Albumin 2.8 L (3.4-5.0) gm/dl Globulin 3.4 (2.5-4.0) gm/dl Albumin/Globulin Ratio 0.8 L (0.9-2) Vitamin B12 609 (193-986) pg/ml Folate > 20.00 (>5.38) ng/ml Urine Opiates Screen (Neg) U Codeine Confrm GC/MS Ur Morphine (GC/MS) Ur Hydrocodone (GC/MS) Ur Norhydrocodone Ur Noroxycodone Urine Oxycodone (GC/MS) U Oxymorphone GC/MS Ur Methadone, Qual (Neg) U Methadone Metabolites Ur Methadone Confirm Ur Hydromorphone (GC/MS) Urine Barbiturates (Neg) Ur Phencyclidine (PCP) (Neg) U Amphetamin/Meth Scrn (Neg) MDMA (Ecstasy) Screen (Neg) U Benzodiazepines Scrn (Neg) Ur Cocaine Metabolite (Neg) U Marijuana (THC) Screen (Neg) Drug Screen Comment 05/05/21 05/05/21 05/05/21 Range/Units 01:35 01:35 01:09 WBC 7.35 (4.8-10.8) K/uL RBC 4.20 L (4.7-6.1) M/uL Hgb 12.0 L (14.0-18.0) g/dL Hct 35.6 L (42-52) % MCV 84.8 (80-100) fL MCH 28.6 (25-34) pg MCHC 33.7 (32-36) g/dL RDW Std Deviation 50.2 H (36.4-46.3) fL RDW Coeff of Nils 16.4 H (11.5-14.5) % Plt Count 237 (130-400) K/uL MPV 8.6 (7.4-10.4) fL Immature Gran % (Auto) 0.1 % Neut % (Auto) 58.4 % Lymph % (Auto) 31.2 % [place] % (Auto) 10.2 % Eos % (Auto) 0.0 % Baso % (Auto) 0.1 % Neut # (Auto) 4.29 (1.4-6.5) K/uL Lymph # (Auto) 2.29 (1.2-3.4) K/uL [place] # (Auto) 0.75 H (0.11-0.59) K/uL Eos # (Auto) 0.00 (0-0.5) K/uL Baso # (Auto) 0.01 (0-0.2) K/uL Immature Gran # (Auto) 0.01 (0.00-0.02) K/uL VBG pH (7.36-7.41) Sodium (136-145) mmol/L Potassium (3.5-5.1) mmol/L Chloride (98-107) mmol/L Carbon Dioxide (21-32) mmol/L Anion Gap (3-11) BUN (7-18) mg/dl Creatinine (0.6-1.4) mg/dl Est Cr Clr Drug Dosing ml/min Est GFR ( Amer) ml/min Est GFR (Non-Af Amer) ml/min BUN/Creatinine Ratio (10-20) Glucose (70-99) mg/dl POC Glucose 143 H (70-99) mg/dl Estimat Average Glucose Pending Hemoglobin A1c Pending Calcium (8.5-10.1) mg/dl Phosphorus (2.5-4.9) mg/dl Magnesium (1.8-2.4) mg/dl Total Bilirubin (0.2-1) mg/dl AST (15-37) U/L ALT (12-78) U/L Alkaline Phosphatase (45-117) U/L Total Protein (6.4-8.2) gm/dl Albumin (3.4-5.0) gm/dl Globulin (2.5-4.0) gm/dl Albumin/Globulin Ratio (0.9-2) Vitamin B12 (193-986) pg/ml Folate (>5.38) ng/ml Urine Opiates Screen (Neg) U Codeine Confrm GC/MS Ur Morphine (GC/MS) Ur Hydrocodone (GC/MS) Ur Norhydrocodone Ur Noroxycodone Urine Oxycodone (GC/MS) U Oxymorphone GC/MS Ur Methadone, Qual (Neg) U Methadone Metabolites Ur Methadone Confirm Ur Hydromorphone (GC/MS) Urine Barbiturates (Neg) Ur Phencyclidine (PCP) (Neg) U Amphetamin/Meth Scrn (Neg) MDMA (Ecstasy) Screen (Neg) U Benzodiazepines Scrn (Neg) Ur Cocaine Metabolite (Neg) U Marijuana (THC) Screen (Neg) Drug Screen Comment 05/05/21 05/04/21 05/04/21 Range/Units 00:15 23:55 23:10 WBC (4.8-10.8) K/uL RBC (4.7-6.1) M/uL Hgb (14.0-18.0) g/dL Hct (42-52) % MCV (80-100) fL MCH (25-34) pg MCHC (32-36) g/dL RDW Std Deviation (36.4-46.3) fL RDW Coeff of Nils (11.5-14.5) % Plt Count (130-400) K/uL MPV (7.4-10.4) fL Immature Gran % (Auto) % Neut % (Auto) % Lymph % (Auto) % [place] % (Auto) % Eos % (Auto) % Baso % (Auto) % Neut # (Auto) (1.4-6.5) K/uL Lymph # (Auto) (1.2-3.4) K/uL [place] # (Auto) (0.11-0.59) K/uL Eos # (Auto) (0-0.5) K/uL Baso # (Auto) (0-0.2) K/uL Immature Gran # (Auto) (0.00-0.02) K/uL VBG pH (7.36-7.41) Sodium (136-145) mmol/L Potassium (3.5-5.1) mmol/L Chloride (98-107) mmol/L Carbon Dioxide (21-32) mmol/L Anion Gap (3-11) BUN (7-18) mg/dl Creatinine (0.6-1.4) mg/dl Est Cr Clr Drug Dosing ml/min Est GFR ( Amer) ml/min Est GFR (Non-Af Amer) ml/min BUN/Creatinine Ratio (10-20) Glucose (70-99) mg/dl POC Glucose 120 H 139 H 225 H (70-99) mg/dl Estimat Average Glucose Hemoglobin A1c Calcium (8.5-10.1) mg/dl Phosphorus (2.5-4.9) mg/dl Magnesium (1.8-2.4) mg/dl Total Bilirubin (0.2-1) mg/dl AST (15-37) U/L ALT (12-78) U/L Alkaline Phosphatase (45-117) U/L Total Protein (6.4-8.2) gm/dl Albumin (3.4-5.0) gm/dl Globulin (2.5-4.0) gm/dl Albumin/Globulin Ratio (0.9-2) Vitamin B12 (193-986) pg/ml Folate (>5.38) ng/ml Urine Opiates Screen (Neg) U Codeine Confrm GC/MS Ur Morphine (GC/MS) Ur Hydrocodone (GC/MS) Ur Norhydrocodone Ur Noroxycodone Urine Oxycodone (GC/MS) U Oxymorphone GC/MS Ur Methadone, Qual (Neg) U Methadone Metabolites Ur Methadone Confirm Ur Hydromorphone (GC/MS) Urine Barbiturates (Neg) Ur Phencyclidine (PCP) (Neg) U Amphetamin/Meth Scrn (Neg) MDMA (Ecstasy) Screen (Neg) U Benzodiazepines Scrn (Neg) Ur Cocaine Metabolite (Neg) U Marijuana (THC) Screen (Neg) Drug Screen Comment 05/04/21 05/04/21 05/04/21 Range/Units 22:48 22:48 22:41 WBC (4.8-10.8) K/uL RBC (4.7-6.1) M/uL Hgb (14.0-18.0) g/dL Hct (42-52) % MCV (80-100) fL MCH (25-34) pg MCHC (32-36) g/dL RDW Std Deviation (36.4-46.3) fL RDW Coeff of Nils (11.5-14.5) % Plt Count (130-400) K/uL MPV (7.4-10.4) fL Immature Gran % (Auto) % Neut % (Auto) % Lymph % (Auto) % [place] % (Auto) % Eos % (Auto) % Baso % (Auto) % Neut # (Auto) (1.4-6.5) K/uL Lymph # (Auto) (1.2-3.4) K/uL [place] # (Auto) (0.11-0.59) K/uL Eos # (Auto) (0-0.5) K/uL Baso # (Auto) (0-0.2) K/uL Immature Gran # (Auto) (0.00-0.02) K/uL VBG pH 7.35 L (7.36-7.41) Sodium 132 L (136-145) mmol/L Potassium 3.6 D (3.5-5.1) mmol/L Chloride 102 (98-107) mmol/L Carbon Dioxide 15 L (21-32) mmol/L Anion Gap 16.0 H (3-11) BUN 17 (7-18) mg/dl Creatinine 1.19 (0.6-1.4) mg/dl Est Cr Clr Drug Dosing 62.2 ml/min Est GFR ( Amer) 77.6 ml/min Est GFR (Non-Af Amer) 66.9 ml/min BUN/Creatinine Ratio 14.1 (10-20) Glucose 279 H (70-99) mg/dl POC Glucose 282 H (70-99) mg/dl Estimat Average Glucose Hemoglobin A1c Calcium 7.7 L D (8.5-10.1) mg/dl Phosphorus 2.6 (2.5-4.9) mg/dl Magnesium 1.9 (1.8-2.4) mg/dl Total Bilirubin (0.2-1) mg/dl AST (15-37) U/L ALT (12-78) U/L Alkaline Phosphatase (45-117) U/L Total Protein (6.4-8.2) gm/dl Albumin (3.4-5.0) gm/dl Globulin (2.5-4.0) gm/dl Albumin/Globulin Ratio (0.9-2) Vitamin B12 (193-986) pg/ml Folate (>5.38) ng/ml Urine Opiates Screen (Neg) U Codeine Confrm GC/MS Ur Morphine (GC/MS) Ur Hydrocodone (GC/MS) Ur Norhydrocodone Ur Noroxycodone Urine Oxycodone (GC/MS) U Oxymorphone GC/MS Ur Methadone, Qual (Neg) U Methadone Metabolites Ur Methadone Confirm Ur Hydromorphone (GC/MS) Urine Barbiturates (Neg) Ur Phencyclidine (PCP) (Neg) U Amphetamin/Meth Scrn (Neg) MDMA (Ecstasy) Screen (Neg) U Benzodiazepines Scrn (Neg) Ur Cocaine Metabolite (Neg) U Marijuana (THC) Screen (Neg) Drug Screen Comment 05/04/21 05/04/21 05/04/21 Range/Units 21:50 21:50 20:54 WBC (4.8-10.8) K/uL RBC (4.7-6.1) M/uL Hgb (14.0-18.0) g/dL Hct (42-52) % MCV (80-100) fL MCH (25-34) pg MCHC (32-36) g/dL RDW Std Deviation (36.4-46.3) fL RDW Coeff of Nils (11.5-14.5) % Plt Count (130-400) K/uL MPV (7.4-10.4) fL Immature Gran % (Auto) % Neut % (Auto) % Lymph % (Auto) % [place] % (Auto) % Eos % (Auto) % Baso % (Auto) % Neut # (Auto) (1.4-6.5) K/uL Lymph # (Auto) (1.2-3.4) K/uL [place] # (Auto) (0.11-0.59) K/uL Eos # (Auto) (0-0.5) K/uL Baso # (Auto) (0-0.2) K/uL Immature Gran # (Auto) (0.00-0.02) K/uL VBG pH (7.36-7.41) Sodium (136-145) mmol/L Potassium (3.5-5.1) mmol/L Chloride (98-107) mmol/L Carbon Dioxide (21-32) mmol/L Anion Gap (3-11) BUN (7-18) mg/dl Creatinine (0.6-1.4) mg/dl Est Cr Clr Drug Dosing ml/min Est GFR ( Amer) ml/min Est GFR (Non-Af Amer) ml/min BUN/Creatinine Ratio (10-20) Glucose (70-99) mg/dl POC Glucose 423 H* (70-99) mg/dl Estimat Average Glucose Hemoglobin A1c Calcium (8.5-10.1) mg/dl Phosphorus (2.5-4.9) mg/dl Magnesium (1.8-2.4) mg/dl Total Bilirubin (0.2-1) mg/dl AST (15-37) U/L ALT (12-78) U/L Alkaline Phosphatase (45-117) U/L Total Protein (6.4-8.2) gm/dl Albumin (3.4-5.0) gm/dl Globulin (2.5-4.0) gm/dl Albumin/Globulin Ratio (0.9-2) Vitamin B12 (193-986) pg/ml Folate (>5.38) ng/ml Urine Opiates Screen Pos H (Neg) U Codeine Confrm GC/MS Pending Ur Morphine (GC/MS) Pending Ur Hydrocodone (GC/MS) Pending Ur Norhydrocodone Pending Ur Noroxycodone Pending Urine Oxycodone (GC/MS) Pending U Oxymorphone GC/MS Pending Ur Methadone, Qual Pos H (Neg) U Methadone Metabolites Pending Ur Methadone Confirm Pending Ur Hydromorphone (GC/MS) Pending Urine Barbiturates Neg (Neg) Ur Phencyclidine (PCP) Neg (Neg) U Amphetamin/Meth Scrn Neg (Neg) MDMA (Ecstasy) Screen Neg (Neg) U Benzodiazepines Scrn Neg (Neg) Ur Cocaine Metabolite Neg (Neg) U Marijuana (THC) Screen Neg (Neg) Drug Screen Comment Pending 05/04/21 Range/Units 20:52 WBC (4.8-10.8) K/uL RBC (4.7-6.1) M/uL Hgb (14.0-18.0) g/dL Hct (42-52) % MCV (80-100) fL MCH (25-34) pg MCHC (32-36) g/dL RDW Std Deviation (36.4-46.3) fL RDW Coeff of Nils (11.5-14.5) % Plt Count (130-400) K/uL MPV (7.4-10.4) fL Immature Gran % (Auto) % Neut % (Auto) % Lymph % (Auto) % [place] % (Auto) % Eos % (Auto) % Baso % (Auto) % Neut # (Auto) (1.4-6.5) K/uL Lymph # (Auto) (1.2-3.4) K/uL [place] # (Auto) (0.11-0.59) K/uL Eos # (Auto) (0-0.5) K/uL Baso # (Auto) (0-0.2) K/uL Immature Gran # (Auto) (0.00-0.02) K/uL VBG pH (7.36-7.41) Sodium (136-145) mmol/L Potassium (3.5-5.1) mmol/L Chloride (98-107) mmol/L Carbon Dioxide (21-32) mmol/L Anion Gap (3-11) BUN (7-18) mg/dl Creatinine (0.6-1.4) mg/dl Est Cr Clr Drug Dosing ml/min Est GFR ( Amer) ml/min Est GFR (Non-Af Amer) ml/min BUN/Creatinine Ratio (10-20) Glucose (70-99) mg/dl POC Glucose 451 H* (70-99) mg/dl Estimat Average Glucose Hemoglobin A1c Calcium (8.5-10.1) mg/dl Phosphorus (2.5-4.9) mg/dl Magnesium (1.8-2.4) mg/dl Total Bilirubin (0.2-1) mg/dl AST (15-37) U/L ALT (12-78) U/L Alkaline Phosphatase (45-117) U/L Total Protein (6.4-8.2) gm/dl Albumin (3.4-5.0) gm/dl Globulin (2.5-4.0) gm/dl Albumin/Globulin Ratio (0.9-2) Vitamin B12 (193-986) pg/ml Folate (>5.38) ng/ml Urine Opiates Screen (Neg) U Codeine Confrm GC/MS Ur Morphine (GC/MS) Ur Hydrocodone (GC/MS) Ur Norhydrocodone Ur Noroxycodone Urine Oxycodone (GC/MS) U Oxymorphone GC/MS Ur Methadone, Qual (Neg) U Methadone Metabolites Ur Methadone Confirm Ur Hydromorphone (GC/MS) Urine Barbiturates (Neg) Ur Phencyclidine (PCP) (Neg) U Amphetamin/Meth Scrn (Neg) MDMA (Ecstasy) Screen (Neg) U Benzodiazepines Scrn (Neg) Ur Cocaine Metabolite (Neg) U Marijuana (THC) Screen (Neg) Drug Screen Comment
[2021-05-05] MEDS ORDERED: POTASSIUM PHOSPHATE 15 MMOL in SODIUM CHLORIDE 0.9% 250 ML IV ONE ×2 (16:45→18:00)
[2021-05-05] MEDS: POT PHOSPHATE MONOBASIC W/ SOD TAB PO SCH ×2 (17:53→21:01)
[2021-05-05 20:15] LABS: Calcium 7.8 mg/dl (8.5-10.1); Creatinine Clr Calc Pharmacy 72.7 ml/min; Est GFR (African American) 94.6 ml/min; Est GFR (Non-African American) 81.6 ml/min; Magnesium 1.8 mg/dl (1.8-2.4); Potassium 3.6 mmol/L (3.5-5.1)
[2021-05-05 20:25] LABS: Phosphorus 1.5 mg/dl (2.5-4.9)
[2021-05-05] MEDS ORDERED: SODIUM PHOSPHATE 3 MMOL/1 ML INFUSION IV STA (20:49)
[2021-05-05] MEDS: QUEtiapine FUMARATE 200 MG TAB PO SCH (21:02)
[2021-05-05] MEDS: AMITRIPTYLINE HCL 25 MG TAB PO SCH (21:03)
[2021-05-05] MEDS ORDERED: SODIUM PHOSPHATE 15 MMOL in SODIUM CHLORIDE 0.9% 250 ML IV ONE (21:15)
[2021-05-05] MEDS: HYDROmorphone INJ 0.5 MG/0.5 ML SYR IV PRN (22:48)
[2021-05-06] MEDS: D5W AND 1/2NSS + 20MEQ KCL 20 MEQ/1,000 ML BAG IV SCH ×5 (02:07→21:44)
[2021-05-06] MEDS: HYDROmorphone INJ 0.5 MG/0.5 ML SYR IV PRN ×3 (05:06→23:15)
[2021-05-06 07:38] LABS: Estimated Average Glucose 223 mg/dl; Hemoglobin A1C 9.4 % (4.5-5.6)
[2021-05-06] MEDS ORDERED: INSULIN GLARGINE SOLOSTAR 100 UNITS/ML 3 ML PEN SC ONE (08:00)
--- NOTE | 2021-05-06 08:21 | Hospitalist Progress Note ---
Date of Service May 06, 2021 Assessment & Plan (1) Abdominal pain: (2) Nausea & vomiting: (3) Hyperglycemia: Plan: Abd pain, N/V: -likely 2/2 Pancreatitis vs partial Large bowel obstruction -CT abd 1. There is abrupt caliber change seen within the distal transverse colon. The colon proximal to this location is mildly dilated and filled with gas and stool. Therefore, this could be transient or possibly represent a partial large bowel obstruction with the transition point located at the distal transverse colon. Given the abrupt caliber change, a colonic lesion cannot be excluded. Follow-up colonoscopy is recommended for further evaluation. 2. Chronic pancreatitis, unchanged. No evidence for acute pancreatitis at this time. 3. Hepatic steatosis. 4. Mildly distended gas and fluid-filled stomach. However, no evidence for gastric outlet obstruction. GI and Gen. surgery consulted Per surgery Pt does not appear to be completely obstructed No surgical intervention indicated at this time Recommend direct visualization with colonoscopy, if not able to perform then would recommend repeat CT scan with oral contrast given the time to reach the colon Per GI Will need outpatient followup for further evaluation of chronic pancreatitis Continue Pancreatic enzyme therapy and PPI Advance diet as per primary team due to DKA, but no criteria for acute pancreatitis to limit timing of diet Will need outpatient colonoscopy when acute issues resolve Consider CT abd/pelvis with PO contrast if patient refuses colonoscopy - NPO since admission, will try clear liquid diet now (05/05) - Hgb in the hospital better than clinic hgb (hemoconcentrated?) -on 10.4 in 03/2021 and on admission 12.8 - current Hgb 12.0 -due to hx of blood in the vomit will trend H/H, GI consulted , cont. IV PPI -SCD for DVT ppx -WBC mildly elevated on admission 12.2K, now down to 7.4K (after IV fluids and treatment of DKA); normal UA, afebrile - 05/06 - tolerating clear liquid diet, will switch to low fiber diet DKA, Hyperglycemia: Hgb A1c 9.4% -pt did not take his insulin for 2 days -glucose on admission 361 - receiving 1 bolus NS - started on IV insulin, Glycemic pharmacy consulted, in service educator also consulted - replace electrolytes, cont. IVF Chronic pain syndrome with methadone tx -methadone prescribed by Dr. Neal Gee -last took medication 2 weeks ago per pt but it looks like he has not taken the meds for > 1 month on PDMP -for now will manage pain with morphine vs dilaudid ETOH abuse: -last use on 05/03 -will start the pt on ETOH withdrawal protocol - pt already on gabapentin 600mg TID -IV thiamine, folic acid -Monitor for withdrawal symptoms Elevated BP: -no hx of HTN - for now will manage with labetalol prn Depression/anxiety: -c/w home meds Diet: NPO - clear liquid diet -> switch to low fiber diet DVT PPx: due to possible blood in the vomit SCDs Code Status:FULL CODE Emergency Contact: Daughter Aggie: [phone] Admission and Anticipated Discharge Date Admission Date: May 04, 2021 Subjective Patient seen in follow-up of nausea vomiting, abdominal pain, secondary to pancreatitis, DKA, and possible bowel obstruction Currently sitting up in bed, in no acute distress Denies fevers, chills, chest pain shortness of breath Continues to have some abdominal pain, mostly in epigastric area says that he was vomiting at home, however no more vomiting now When EMS took him he reports that vomitus was bloody He had some diarrhea at home Started clear liquid diet whcih he seems to tolerate, pt would like to advance his diet - switched to low fiber Review of Systems Review of Systems: All systems reviewed & are unremarkable except as noted in Subjective Physical Exam Physical Exam: General:. thin male sitting up in bed, in NAD HEENT:. NC/AT, EOMI, PERRL, Sclera non-icteric Lungs:. No signs of respiratory distress, CTA, no wheezing or crackles Heart:. Normal S1, S2, no murmur Abdominal:+ abd pain to palpation (epigastric, improved), ND, Soft, + BS MSK:. No LE edema, moves extremities Skin:. no rash or open wound Psych:. AAOx3, normal affect Results & Data Results & Data ([facility]) Vital Signs (Past 12 Hours) Vital Signs Temp Pulse Pulse Resp BP Pulse Ox 05/06/21 07:35 36.5 C 71 16 148/84 H 97 05/06/21 03:25 36.4 C L 69 18 163/90 H 95 05/06/21 01:57 87 05/05/21 23:01 36.9 C 85 16 152/85 H 96 Laboratory Results 05/06/21 05/06/21 05/06/21 Range/Units 06:44 04:56 02:57 WBC (4.8-10.8) K/uL RBC (4.7-6.1) M/uL Hgb (14.0-18.0) g/dL Hct (42-52) % MCV (80-100) fL MCH (25-34) pg MCHC (32-36) g/dL RDW Std Deviation (36.4-46.3) fL RDW Coeff of Nils (11.5-14.5) % Plt Count (130-400) K/uL MPV (7.4-10.4) fL Immature Gran % (Auto) % Neut % (Auto) % Lymph % (Auto) % [place] % (Auto) % Eos % (Auto) % Baso % (Auto) % Neut # (Auto) (1.4-6.5) K/uL Lymph # (Auto) (1.2-3.4) K/uL [place] # (Auto) (0.11-0.59) K/uL Eos # (Auto) (0-0.5) K/uL Baso # (Auto) (0-0.2) K/uL Immature Gran # (Auto) (0.00-0.02) K/uL VBG pH Sodium (136-145) mmol/L Potassium (3.5-5.1) mmol/L Chloride (98-107) mmol/L Carbon Dioxide (21-32) mmol/L Anion Gap (3-11) BUN (7-18) mg/dl Creatinine (0.6-1.4) mg/dl Est Cr Clr Drug Dosing ml/min Est GFR ( Amer) ml/min Est GFR (Non-Af Amer) ml/min BUN/Creatinine Ratio (10-20) Glucose (70-99) mg/dl POC Glucose 226 H 233 H 245 H (70-99) mg/dl Estimat Average Glucose mg/dl Hemoglobin A1c (4.5-5.6) % Calcium (8.5-10.1) mg/dl Phosphorus (2.5-4.9) mg/dl Magnesium (1.8-2.4) mg/dl Vitamin B12 (193-986) pg/ml Folate (>5.38) ng/ml 05/06/21 05/06/21 05/05/21 Range/Units 01:48 00:43 23:53 WBC (4.8-10.8) K/uL RBC (4.7-6.1) M/uL Hgb (14.0-18.0) g/dL Hct (42-52) % MCV (80-100) fL MCH (25-34) pg MCHC (32-36) g/dL RDW Std Deviation (36.4-46.3) fL RDW Coeff of Nils (11.5-14.5) % Plt Count (130-400) K/uL MPV (7.4-10.4) fL Immature Gran % (Auto) % Neut % (Auto) % Lymph % (Auto) % [place] % (Auto) % Eos % (Auto) % Baso % (Auto) % Neut # (Auto) (1.4-6.5) K/uL Lymph # (Auto) (1.2-3.4) K/uL [place] # (Auto) (0.11-0.59) K/uL Eos # (Auto) (0-0.5) K/uL Baso # (Auto) (0-0.2) K/uL Immature Gran # (Auto) (0.00-0.02) K/uL VBG pH Sodium (136-145) mmol/L Potassium (3.5-5.1) mmol/L Chloride (98-107) mmol/L Carbon Dioxide (21-32) mmol/L Anion Gap (3-11) BUN (7-18) mg/dl Creatinine (0.6-1.4) mg/dl Est Cr Clr Drug Dosing ml/min Est GFR ( Amer) ml/min Est GFR (Non-Af Amer) ml/min BUN/Creatinine Ratio (10-20) Glucose (70-99) mg/dl POC Glucose 202 H 207 H 204 H (70-99) mg/dl Estimat Average Glucose mg/dl Hemoglobin A1c (4.5-5.6) % Calcium (8.5-10.1) mg/dl Phosphorus (2.5-4.9) mg/dl Magnesium (1.8-2.4) mg/dl Vitamin B12 (193-986) pg/ml Folate (>5.38) ng/ml 05/05/21 05/05/21 05/05/21 Range/Units 22:35 21:01 20:06 WBC (4.8-10.8) K/uL RBC (4.7-6.1) M/uL Hgb (14.0-18.0) g/dL Hct (42-52) % MCV (80-100) fL MCH (25-34) pg MCHC (32-36) g/dL RDW Std Deviation (36.4-46.3) fL RDW Coeff of Nils (11.5-14.5) % Plt Count (130-400) K/uL MPV (7.4-10.4) fL Immature Gran % (Auto) % Neut % (Auto) % Lymph % (Auto) % [place] % (Auto) % Eos % (Auto) % Baso % (Auto) % Neut # (Auto) (1.4-6.5) K/uL Lymph # (Auto) (1.2-3.4) K/uL [place] # (Auto) (0.11-0.59) K/uL Eos # (Auto) (0-0.5) K/uL Baso # (Auto) (0-0.2) K/uL Immature Gran # (Auto) (0.00-0.02) K/uL VBG pH Sodium (136-145) mmol/L Potassium (3.5-5.1) mmol/L Chloride (98-107) mmol/L Carbon Dioxide (21-32) mmol/L Anion Gap (3-11) BUN (7-18) mg/dl Creatinine (0.6-1.4) mg/dl Est Cr Clr Drug Dosing ml/min Est GFR ( Amer) ml/min Est GFR (Non-Af Amer) ml/min BUN/Creatinine Ratio (10-20) Glucose (70-99) mg/dl POC Glucose 149 H 187 H 241 H (70-99) mg/dl Estimat Average Glucose mg/dl Hemoglobin A1c (4.5-5.6) % Calcium (8.5-10.1) mg/dl Phosphorus (2.5-4.9) mg/dl Magnesium (1.8-2.4) mg/dl Vitamin B12 (193-986) pg/ml Folate (>5.38) ng/ml 05/05/21 05/05/21 05/05/21 Range/Units 19:42 19:42 18:49 WBC (4.8-10.8) K/uL RBC (4.7-6.1) M/uL Hgb (14.0-18.0) g/dL Hct (42-52) % MCV (80-100) fL MCH (25-34) pg MCHC (32-36) g/dL RDW Std Deviation (36.4-46.3) fL RDW Coeff of Nils (11.5-14.5) % Plt Count (130-400) K/uL MPV (7.4-10.4) fL Immature Gran % (Auto) % Neut % (Auto) % Lymph % (Auto) % [place] % (Auto) % Eos % (Auto) % Baso % (Auto) % Neut # (Auto) (1.4-6.5) K/uL Lymph # (Auto) (1.2-3.4) K/uL [place] # (Auto) (0.11-0.59) K/uL Eos # (Auto) (0-0.5) K/uL Baso # (Auto) (0-0.2) K/uL Immature Gran # (Auto) (0.00-0.02) K/uL VBG pH 7.42 H Sodium 136 (136-145) mmol/L Potassium 3.6 (3.5-5.1) mmol/L Chloride 107 (98-107) mmol/L Carbon Dioxide 23 (21-32) mmol/L Anion Gap 6.0 (3-11) BUN 10 (7-18) mg/dl Creatinine 1.01 (0.6-1.4) mg/dl Est Cr Clr Drug Dosing 72.7 ml/min Est GFR ( Amer) 94.6 ml/min Est GFR (Non-Af Amer) 81.6 ml/min BUN/Creatinine Ratio 10.0 (10-20) Glucose 272 H (70-99) mg/dl POC Glucose 344 H* (70-99) mg/dl Estimat Average Glucose mg/dl Hemoglobin A1c (4.5-5.6) % Calcium 7.8 L (8.5-10.1) mg/dl Phosphorus 1.5 L* (2.5-4.9) mg/dl Magnesium 1.8 (1.8-2.4) mg/dl Vitamin B12 (193-986) pg/ml Folate (>5.38) ng/ml 05/05/21 05/05/21 05/05/21 Range/Units 17:46 16:35 15:52 WBC (4.8-10.8) K/uL RBC (4.7-6.1) M/uL Hgb (14.0-18.0) g/dL Hct (42-52) % MCV (80-100) fL MCH (25-34) pg MCHC (32-36) g/dL RDW Std Deviation (36.4-46.3) fL RDW Coeff of Nils (11.5-14.5) % Plt Count (130-400) K/uL MPV (7.4-10.4) fL Immature Gran % (Auto) % Neut % (Auto) % Lymph % (Auto) % [place] % (Auto) % Eos % (Auto) % Baso % (Auto) % Neut # (Auto) (1.4-6.5) K/uL Lymph # (Auto) (1.2-3.4) K/uL [place] # (Auto) (0.11-0.59) K/uL Eos # (Auto) (0-0.5) K/uL Baso # (Auto) (0-0.2) K/uL Immature Gran # (Auto) (0.00-0.02) K/uL VBG pH 7.45 H Sodium (136-145) mmol/L Potassium (3.5-5.1) mmol/L Chloride (98-107) mmol/L Carbon Dioxide (21-32) mmol/L Anion Gap (3-11) BUN (7-18) mg/dl Creatinine (0.6-1.4) mg/dl Est Cr Clr Drug Dosing ml/min Est GFR ( Amer) ml/min Est GFR (Non-Af Amer) ml/min BUN/Creatinine Ratio (10-20) Glucose (70-99) mg/dl POC Glucose 298 H 213 H (70-99) mg/dl Estimat Average Glucose mg/dl Hemoglobin A1c (4.5-5.6) % Calcium (8.5-10.1) mg/dl Phosphorus (2.5-4.9) mg/dl Magnesium (1.8-2.4) mg/dl Vitamin B12 (193-986) pg/ml Folate (>5.38) ng/ml 05/05/21 05/05/21 05/05/21 Range/Units 15:45 14:51 14:51 WBC (4.8-10.8) K/uL RBC (4.7-6.1) M/uL Hgb (14.0-18.0) g/dL Hct (42-52) % MCV (80-100) fL MCH (25-34) pg MCHC (32-36) g/dL RDW Std Deviation (36.4-46.3) fL RDW Coeff of Nils (11.5-14.5) % Plt Count (130-400) K/uL MPV (7.4-10.4) fL Immature Gran % (Auto) % Neut % (Auto) % Lymph % (Auto) % [place] % (Auto) % Eos % (Auto) % Baso % (Auto) % Neut # (Auto) (1.4-6.5) K/uL Lymph # (Auto) (1.2-3.4) K/uL [place] # (Auto) (0.11-0.59) K/uL Eos # (Auto) (0-0.5) K/uL Baso # (Auto) (0-0.2) K/uL Immature Gran # (Auto) (0.00-0.02) K/uL VBG pH Cancelled Sodium 135 L (136-145) mmol/L Potassium 4.0 (3.5-5.1) mmol/L Chloride 106 (98-107) mmol/L Carbon Dioxide 21 (21-32) mmol/L Anion Gap 8.0 (3-11) BUN 13 (7-18) mg/dl Creatinine 1.00 (0.6-1.4) mg/dl Est Cr Clr Drug Dosing 73.5 ml/min Est GFR ( Amer) 95.7 ml/min Est GFR (Non-Af Amer) 82.6 ml/min BUN/Creatinine Ratio 12.5 (10-20) Glucose 254 H (70-99) mg/dl POC Glucose 216 H (70-99) mg/dl Estimat Average Glucose mg/dl Hemoglobin A1c (4.5-5.6) % Calcium 8.3 L (8.5-10.1) mg/dl Phosphorus 1.3 L* (2.5-4.9) mg/dl Magnesium 2.0 (1.8-2.4) mg/dl Vitamin B12 (193-986) pg/ml Folate (>5.38) ng/ml 05/05/21 05/05/21 05/05/21 Range/Units 14:44 13:27 12:11 WBC (4.8-10.8) K/uL RBC (4.7-6.1) M/uL Hgb (14.0-18.0) g/dL Hct (42-52) % MCV (80-100) fL MCH (25-34) pg MCHC (32-36) g/dL RDW Std Deviation (36.4-46.3) fL RDW Coeff of Nils (11.5-14.5) % Plt Count (130-400) K/uL MPV (7.4-10.4) fL Immature Gran % (Auto) % Neut % (Auto) % Lymph % (Auto) % [place] % (Auto) % Eos % (Auto) % Baso % (Auto) % Neut # (Auto) (1.4-6.5) K/uL Lymph # (Auto) (1.2-3.4) K/uL [place] # (Auto) (0.11-0.59) K/uL Eos # (Auto) (0-0.5) K/uL Baso # (Auto) (0-0.2) K/uL Immature Gran # (Auto) (0.00-0.02) K/uL VBG pH Sodium (136-145) mmol/L Potassium (3.5-5.1) mmol/L Chloride (98-107) mmol/L Carbon Dioxide (21-32) mmol/L Anion Gap (3-11) BUN (7-18) mg/dl Creatinine (0.6-1.4) mg/dl Est Cr Clr Drug Dosing ml/min Est GFR ( Amer) ml/min Est GFR (Non-Af Amer) ml/min BUN/Creatinine Ratio (10-20) Glucose (70-99) mg/dl POC Glucose 249 H 271 H 229 H (70-99) mg/dl Estimat Average Glucose mg/dl Hemoglobin A1c (4.5-5.6) % Calcium (8.5-10.1) mg/dl Phosphorus (2.5-4.9) mg/dl Magnesium (1.8-2.4) mg/dl Vitamin B12 (193-986) pg/ml Folate (>5.38) ng/ml 05/05/21 05/05/21 05/05/21 Range/Units 11:55 10:50 10:07 WBC (4.8-10.8) K/uL RBC (4.7-6.1) M/uL Hgb (14.0-18.0) g/dL Hct (42-52) % MCV (80-100) fL MCH (25-34) pg MCHC (32-36) g/dL RDW Std Deviation (36.4-46.3) fL RDW Coeff of Nils (11.5-14.5) % Plt Count (130-400) K/uL MPV (7.4-10.4) fL Immature Gran % (Auto) % Neut % (Auto) % Lymph % (Auto) % [place] % (Auto) % Eos % (Auto) % Baso % (Auto) % Neut # (Auto) (1.4-6.5) K/uL Lymph # (Auto) (1.2-3.4) K/uL [place] # (Auto) (0.11-0.59) K/uL Eos # (Auto) (0-0.5) K/uL Baso # (Auto) (0-0.2) K/uL Immature Gran # (Auto) (0.00-0.02) K/uL VBG pH 7.39 Cancelled Sodium (136-145) mmol/L Potassium (3.5-5.1) mmol/L Chloride (98-107) mmol/L Carbon Dioxide (21-32) mmol/L Anion Gap (3-11) BUN (7-18) mg/dl Creatinine (0.6-1.4) mg/dl Est Cr Clr Drug Dosing ml/min Est GFR ( Amer) ml/min Est GFR (Non-Af Amer) ml/min BUN/Creatinine Ratio (10-20) Glucose (70-99) mg/dl POC Glucose 273 H (70-99) mg/dl Estimat Average Glucose mg/dl Hemoglobin A1c (4.5-5.6) % Calcium (8.5-10.1) mg/dl Phosphorus (2.5-4.9) mg/dl Magnesium (1.8-2.4) mg/dl Vitamin B12 (193-986) pg/ml Folate (>5.38) ng/ml 05/05/21 05/05/21 05/05/21 Range/Units 10:07 07:48 01:35 WBC (4.8-10.8) K/uL RBC (4.7-6.1) M/uL Hgb (14.0-18.0) g/dL Hct (42-52) % MCV (80-100) fL MCH (25-34) pg MCHC (32-36) g/dL RDW Std Deviation (36.4-46.3) fL RDW Coeff of Nils (11.5-14.5) % Plt Count (130-400) K/uL MPV (7.4-10.4) fL Immature Gran % (Auto) % Neut % (Auto) % Lymph % (Auto) % [place] % (Auto) % Eos % (Auto) % Baso % (Auto) % Neut # (Auto) (1.4-6.5) K/uL Lymph # (Auto) (1.2-3.4) K/uL [place] # (Auto) (0.11-0.59) K/uL Eos # (Auto) (0-0.5) K/uL Baso # (Auto) (0-0.2) K/uL Immature Gran # (Auto) (0.00-0.02) K/uL VBG pH Sodium 129 L (136-145) mmol/L Potassium 4.1 (3.5-5.1) mmol/L Chloride 103 (98-107) mmol/L Carbon Dioxide 15 L (21-32) mmol/L Anion Gap 11.0 (3-11) BUN 14 (7-18) mg/dl Creatinine 0.98 (0.6-1.4) mg/dl Est Cr Clr Drug Dosing 75.0 ml/min Est GFR ( Amer) 98.1 ml/min Est GFR (Non-Af Amer) 84.6 ml/min BUN/Creatinine Ratio 14.2 (10-20) Glucose 266 H (70-99) mg/dl POC Glucose (70-99) mg/dl Estimat Average Glucose mg/dl Hemoglobin A1c (4.5-5.6) % Calcium 8.4 L (8.5-10.1) mg/dl Phosphorus 1.6 L 2.1 L (2.5-4.9) mg/dl Magnesium 2.0 (1.8-2.4) mg/dl Vitamin B12 609 (193-986) pg/ml Folate > 20.00 (>5.38) ng/ml 05/05/21 05/05/21 Range/Units 01:35 01:35 WBC 7.35 (4.8-10.8) K/uL RBC 4.20 L (4.7-6.1) M/uL Hgb 12.0 L (14.0-18.0) g/dL Hct 35.6 L (42-52) % MCV 84.8 (80-100) fL MCH 28.6 (25-34) pg MCHC 33.7 (32-36) g/dL RDW Std Deviation 50.2 H (36.4-46.3) fL RDW Coeff of Nils 16.4 H (11.5-14.5) % Plt Count 237 (130-400) K/uL MPV 8.6 (7.4-10.4) fL Immature Gran % (Auto) 0.1 % Neut % (Auto) 58.4 % Lymph % (Auto) 31.2 % [place] % (Auto) 10.2 % Eos % (Auto) 0.0 % Baso % (Auto) 0.1 % Neut # (Auto) 4.29 (1.4-6.5) K/uL Lymph # (Auto) 2.29 (1.2-3.4) K/uL [place] # (Auto) 0.75 H (0.11-0.59) K/uL Eos # (Auto) 0.00 (0-0.5) K/uL Baso # (Auto) 0.01 (0-0.2) K/uL Immature Gran # (Auto) 0.01 (0.00-0.02) K/uL VBG pH Sodium (136-145) mmol/L Potassium (3.5-5.1) mmol/L Chloride (98-107) mmol/L Carbon Dioxide (21-32) mmol/L Anion Gap (3-11) BUN (7-18) mg/dl Creatinine (0.6-1.4) mg/dl Est Cr Clr Drug Dosing ml/min Est GFR ( Amer) ml/min Est GFR (Non-Af Amer) ml/min BUN/Creatinine Ratio (10-20) Glucose (70-99) mg/dl POC Glucose (70-99) mg/dl Estimat Average Glucose 223 mg/dl Hemoglobin A1c 9.4 H (4.5-5.6) % Calcium (8.5-10.1) mg/dl Phosphorus (2.5-4.9) mg/dl Magnesium (1.8-2.4) mg/dl Vitamin B12 (193-986) pg/ml Folate (>5.38) ng/ml Medications Administered Current Inpatient Medications Amitriptyline HCl (Amitriptyline Hcl 25 Mg Tab) 75 mg PO HS MELODY Stop: 06/03/21 20:59 Last Admin: 05/05/21 21:03 Dose: 75 mg Documented by: Clonazepam (Clonazepam 1 Mg Tab) 1 mg PO DAILY MELODY Stop: 06/04/21 08:59 Last Admin: 05/05/21 10:36 Dose: 1 mg Documented by: Dextrose (Dextrose 50% 50 Ml Syringe) 25 - 50 ml IV UD PRN; Protocol PRN Reason: Hypoglycemia Protocol Stop: 06/03/21 19:22 Docusate Sodium (Docusate Sodium 100 Mg Cap) 100 mg PO BID MELODY Stop: 06/03/21 20:59 Last Admin: 05/04/21 20:58 Dose: Not Given Documented by: Escitalopram Oxalate (Escitalopram Oxalate 20 Mg Tab) 20 mg PO DAILY MELODY Stop: 06/04/21 08:59 Last Admin: 05/05/21 08:20 Dose: Not Given Documented by: Gabapentin (Gabapentin 300 Mg Cap) 600 mg PO TID MELODY Stop: 06/03/21 20:59 Last Admin: 05/05/21 21:01 Dose: 600 mg Documented by: Glucagon (Glucagon For Inj 1 Mg Vial) 1 mg SQ UD PRN; Protocol PRN Reason: Hypoglycemia Protocol Stop: 06/03/21 19:22 Glucose (Glucose 10 Tabs/Tube) 4 - 8 tabs PO UD PRN; Protocol PRN Reason: Hypoglycemia Protocol Stop: 06/03/21 19:22 Glucose (Glucose 40% Gel 15 Gm Tube) 15 - 30 gm PO UD PRN; Protocol PRN Reason: Hypoglycemia Protocol Stop: 06/03/21 19:22 Hydromorphone HCl (Hydromorphone Inj 0.5 Mg/0.5 Ml Syr) 0.5 mg IV Q6H PRN PRN Reason: Pain Stop: 05/19/21 13:37 Last Admin: 05/06/21 05:06 Dose: 0.5 mg Documented by: Insulin Human Regular 250 (units/ Sodium Chloride) 250 mls @ 1.2 mls/hr IV .Q24H MELODY; Protocol Stop: 06/03/21 21:59 Last Titration: 05/05/21 23:57 Dose: 1.2 units/hr, 1.2 mls/hr Documented by: Thiamine HCl 100 mg/ Syringe 10 mls @ 2 mls/min IV QAM [facility] Stop: 06/04/21 08:59 Last Admin: 05/05/21 10:36 Dose: 2 mls/min Documented by: Folic Acid 1 mg/ Syringe 10 mls @ 5 mls/min IV QAM M[facility]ODY Stop: 06/04/21 08:59 Last Admin: 05/05/21 10:36 Dose: 5 mls/min Documented by: Pantoprazole Sodium 40 mg/ (Syringe) 10 mls @ 5 mls/min IV BID MELODY Stop: 06/04/21 08:59 Last Admin: 05/05/21 20:10 Dose: 5 mls/min Documented by: Potassium Chloride/Dextrose/Sod Cl (D5w And 1/2nss + 20meq Kcl) 20 meq in 1,000 mls @ 200 mls/hr IV .Q5H [facility] Stop: 06/04/21 08:59 Last Admin: 05/06/21 06:42 Dose: 200 mls/hr Documented by: Insulin Aspart (Insulin Aspart 100 Units/Ml 3 Ml Pen) 0 units SC ACHS [facility] Stop: 06/04/21 07:29 Last Admin: 05/05/21 22:09 Dose: Not Given Documented by: Insulin Aspart (Insulin Aspart 100 Units/Ml 3 Ml Pen) 0 units SC ACHS [facility] Stop: 06/05/21 16:29 Lorazepam (Lorazepam 1 Mg Tab) 1 mg PO ONE PRN; Protocol PRN Reason: EtoH Withdrawal AWSS 6-10 Miscellaneous (Carbohydrates For Hypoglycemia ) 15 - 30 gm PO UD PRN PRN Reason: Hypoglycemia Protocol Stop: 06/03/21 19:22 Miscellaneous (Remove Nicoderm Patch) 1 ea N/A DAILY@[id number] [facility] Stop: 06/04/21 08:58 Last Admin: 05/05/21 10:37 Dose: Not Given Documented by: Miscellaneous Information (Pharmacy Glycemic Mgmt Consult) 1 ea N/A UD PRN PRN Reason: Consult Stop: 06/03/21 21:00 Miscellaneous Information (Dc Iv Insulin Infusion 1 Ea Robina) 1 ea N/A ONE ONE Stop: 05/06/21 14:01 Nicotine (Nicotine 21 Mg/24 Hr Tdsy) 21 mg TD QAM [facility] Stop: 06/04/21 08:59 Last Admin: 05/05/21 10:31 Dose: 21 mg Documented by: Ondansetron HCl (Ondansetron Inj 2 Mg/Ml 2 Ml Vial) 4 mg IV Q6H PRN PRN Reason: Nausea Stop: 06/03/21 19:22 Pantoprazole Sodium (Pantoprazole 40 Mg Tab) 40 mg PO BID [facility] Stop: 06/03/21 20:59 Last Admin: 05/04/21 21:27 Dose: 40 mg Documented by: Potassium Phosphate (Pot Phosphate Monobasic W/ Sod Tab) 1 tab PO QID [facility] Stop: 06/04/21 16:59 Last Admin: 05/05/21 21:01 Dose: 1 tab Documented by: Quetiapine Fumarate (Quetiapine Fumarate 200 Mg Tab) 400 mg PO HS [facility] Stop: 06/03/21 20:59 Last Admin: 05/05/21 21:02 Dose: 400 mg Documented by:
[2021-05-06] MEDS: POT PHOSPHATE MONOBASIC W/ SOD TAB PO SCH ×4 (08:25→21:43)
[2021-05-06] MEDS: NICOTINE 21 MG/24 HR TDSY TD SCH (08:25)
[2021-05-06] MEDS: GABAPENTIN 300 MG CAP PO SCH ×3 (08:26→21:40)
[2021-05-06] MEDS: clonazePAM 1 MG TAB PO SCH (08:26)
[2021-05-06] MEDS: ESCITALOPRAM OXALATE 20 MG TAB PO SCH (08:27)
[2021-05-06] MEDS: PANTOprazole 40 MG in SYRINGE 0 ML IV SCH ×2 (08:27→21:44)
[2021-05-06] MEDS: THIAMINE HCL 100 MG in SYRINGE 9 ML IV SCH (08:27)
[2021-05-06] MEDS: FOLIC ACID 1 MG in SYRINGE 9.8 ML IV SCH (08:27)
[2021-05-06] MEDS: INSULIN ASPART 100 UNITS/ML 3 ML PEN SC SCH ×4 (08:29→21:20)
[2021-05-06 10:27] LABS: Calcium 7.9 mg/dl (8.5-10.1); Creatinine Clr Calc Pharmacy 83.8 ml/min; Est GFR (African American) 104.5 ml/min; Est GFR (Non-African American) 90.2 ml/min; Magnesium 1.6 mg/dl (1.8-2.4); Potassium 3.6 mmol/L (3.5-5.1)
[2021-05-06 10:29] LABS: BUN Creatinine Ratio 6.4 (10-20)
[2021-05-06 10:45] LABS: Beta-Hydroxybutyrate 3.88 mg/dl (0.2-2.81)
[2021-05-06 12:03] LABS: Hematocrit (blood only) 37.3 % (42-52); Hemoglobin 12.7 g/dL (14.0-18.0); Mean Corpuscular Hemoglobin 28.5 pg (25-34); Mean Corpuscular Volume 83.8 fL (80-100); Platelet Count 223 K/uL (130-400); RDW Standard Deviation 49.2 fL (36.4-46.3); Red Blood Count 4.45 M/uL (4.7-6.1); White Blood Count 4.97 K/uL (4.8-10.8)
[2021-05-06] MEDS ORDERED: DC IV INSULIN INFUSION 1 EA DEVI ONE (14:00)
--- NOTE | 2021-05-06 14:45 | Pharmacy Report ---
Pharmacy Glycemic Short Note 2 - Date of Service May 06, 2021 - Glycemic Short BSG Results (Last 24 hours): 05/05/21 05/05/21 05/05/21 14:44 14:51 15:45 Glucose 254 H POC Glucose 249 H 216 H 05/05/21 05/05/21 05/05/21 16:35 17:46 18:49 Glucose POC Glucose 213 H 298 H 344 H* 05/05/21 05/05/21 05/05/21 19:42 20:06 21:01 Glucose 272 H POC Glucose 241 H 187 H 05/05/21 05/05/21 05/06/21 22:35 23:53 00:43 Glucose POC Glucose 149 H 204 H 207 H 05/06/21 05/06/21 05/06/21 01:48 02:57 04:56 Glucose POC Glucose 202 H 245 H 233 H 05/06/21 05/06/21 05/06/21 06:44 08:41 08:43 Glucose POC Glucose 226 H 405 H* 396 H* 05/06/21 05/06/21 05/06/21 08:50 09:45 09:46 Glucose 412 H* POC Glucose 462 H* 390 H* 05/06/21 05/06/21 05/06/21 10:49 10:49 11:54 Glucose POC Glucose 356 H* 355 H* 266 H 05/06/21 05/06/21 05/06/21 13:01 13:03 13:56 Glucose POC Glucose 334 H* 368 H* 292 H 05/06/21 14:37 Glucose POC Glucose 260 H OUTPATIENT ANTIDIABETIC REGIMEN: * glipizide 5 mg BID * Lantus 25 units BID * Novolog 5 units TIDM ASSESSMENT: 05/06/2021 * Patient remains on insulin infusion with rates decreasing throughout the day. * Give patient's home dose of 30 units of Lantus this morning with plan to d/c insulin infusion around 1400 today. * Patient's BSGs spiked today into high 300s so will delay drip transition for now. * Spoke to physician to see if dextrose could be removed from IV fluids which will help decrease BSGs. * Lowered goal range to 140-200 mg/dL. Background * Mr Alicia is a 60 y/o M with a PMH of T2DM who presents with pancreatitis. Patient found to be in DKA and started on insulin infusion. * Insulin infusion stopped at midnight. * Lantus 15 units given last night and 10 units given this morning. * Morning PRP indicated patient's gap was widening again so insulin infusion restarted along with D5 to maintain insulin infusion. * Patient is NPO. * Will continue with insulin infusion at this time since patient is critically ill and NPO. Insulin requirements at this time are unclear. PLAN FOR INPATIENT GLYCEMIC CONTROL: * Hold outpatient oral diabetes medications * Lantus 30 units SQ x 1 * Insulin infusion per calculator. PLAN FOR DISCHARGE: * TBD, HbA1C ordered
[2021-05-06] MEDS ORDERED: INSULIN ASPART 100 UNITS/ML 3 ML PEN SC SCH (16:30)
[2021-05-06] MEDS: AMITRIPTYLINE HCL 25 MG TAB PO SCH (21:42)
[2021-05-06] MEDS: QUEtiapine FUMARATE 200 MG TAB PO SCH (21:43)
[2021-05-06] MEDS ORDERED: POTASSIUM CHLORIDE CRTAB 20 MEQ TABCR PO STA (22:49)
[2021-05-06] MEDS ORDERED: MAGNESIUM SULFATE / D5W 1 GM/100 ML BAG IV ONE (23:00)
[2021-05-07] MEDS: D5W AND 1/2NSS + 20MEQ KCL 20 MEQ/1,000 ML BAG IV SCH ×2 (02:44→21:10)
[2021-05-07] MEDS: GABAPENTIN 300 MG CAP PO SCH ×3 (04:49→21:12)
[2021-05-07] MEDS ORDERED: POTASSIUM CHLORIDE 40 MEQ in SODIUM CHLORIDE 0.9% 1000ML 1,000 ML IV ONE (06:30)
[2021-05-07 07:33] LABS: BUN Creatinine Ratio 3.9 (10-20); Calcium 8.5 mg/dl (8.5-10.1); Creatinine Clr Calc Pharmacy 66.5 ml/min; Est GFR (African American) 84.4 ml/min; Est GFR (Non-African American) 72.8 ml/min; Magnesium 1.9 mg/dl (1.8-2.4); Phosphorus 2.5 mg/dl (2.5-4.9); Potassium 3.8 mmol/L (3.5-5.1)
[2021-05-07] MEDS: INSULIN REGULAR 250 UNITS in SODIUM CHLORIDE 0.9% 247.5 ML IV SCH ×2 (07:40→11:48)
[2021-05-07 07:45] LABS: Beta-Hydroxybutyrate 2.08 mg/dl (0.2-2.81)
[2021-05-07] MEDS ORDERED: INSULIN GLARGINE SOLOSTAR 100 UNITS/ML 3 ML PEN SC ONE ×2 (08:00→21:00)
[2021-05-07] MEDS: INSULIN ASPART 100 UNITS/ML 3 ML PEN SC SCH ×5 (08:32→23:48)
[2021-05-07] MEDS: NICOTINE 21 MG/24 HR TDSY TD SCH (09:11)
[2021-05-07] MEDS: THIAMINE HCL 100 MG in SYRINGE 9 ML IV SCH (09:12)
[2021-05-07] MEDS: PANTOprazole 40 MG in SYRINGE 0 ML IV SCH ×2 (09:12→21:12)
[2021-05-07] MEDS: ESCITALOPRAM OXALATE 20 MG TAB PO SCH (09:13)
[2021-05-07] MEDS: FOLIC ACID 1 MG in SYRINGE 9.8 ML IV SCH (09:13)
[2021-05-07] MEDS: POT PHOSPHATE MONOBASIC W/ SOD TAB PO SCH ×4 (09:15→21:14)
[2021-05-07] MEDS: clonazePAM 1 MG TAB PO SCH (09:18)
--- NOTE | 2021-05-07 11:46 | Hospitalist Progress Note ---
Date of Service May 07, 2021 Assessment & Plan (1) Abdominal pain: (2) Nausea & vomiting: (3) Hyperglycemia: Plan: Abd pain, N/V: -likely 2/2 Pancreatitis vs partial Large bowel obstruction CT abd 1. There is abrupt caliber change seen within the distal transverse colon. The colon proximal to this location is mildly dilated and filled with gas and stool. Therefore, this could be transient or possibly represent a partial large bowel obstruction with the transition point located at the distal transverse colon. Given the abrupt caliber change, a colonic lesion cannot be excluded. Follow-up colonoscopy is recommended for further evaluation. 2. Chronic pancreatitis, unchanged. No evidence for acute pancreatitis at this time. 3. Hepatic steatosis. 4. Mildly distended gas and fluid-filled stomach. However, no evidence for gastric outlet obstruction. GI and Gen. surgery consulted Per surgery Pt does not appear to be completely obstructed No surgical intervention indicated at this time Recommend direct visualization with colonoscopy, if not able to perform then would recommend repeat CT scan with oral contrast given the time to reach the colon Per GI Will need outpatient followup for further evaluation of chronic pancreatitis Continue Pancreatic enzyme therapy and PPI Advance diet as per primary team due to DKA, but no criteria for acute pancreatitis to limit timing of diet Will need outpatient colonoscopy when acute issues resolve Consider CT abd/pelvis with PO contrast if patient refuses colonoscopy - NPO since admission, will try clear liquid diet now (05/05) - Hgb in the hospital better than clinic hgb (hemoconcentrated?) -on 10.4 in 03/2021 and on admission 12.8 - current Hgb 12.0 -due to hx of blood in the vomit will trend H/H, GI consulted , cont. IV PPI -SCD for DVT ppx -WBC mildly elevated on admission 12.2K, now down to 7.4K (after IV fluids and treatment of DKA); normal UA, afebrile - 05/06 - tolerating clear liquid diet, will switch to low fiber diet 05/07 -reports increased pain with eating, will switch back to clear liquid diet for this evening, will reevaluate tomorrow DKA, Hyperglycemia: Hgb A1c 9.4% -pt did not take his insulin for 2 days -glucose on admission 361 - receiving 1 bolus NS - started on IV insulin, Glycemic pharmacy consulted, museum educator also consulted - replace electrolytes, cont. IVF Chronic pain syndrome with methadone tx -methadone prescribed by Dr. Neal Gee -last took medication 2 weeks ago per pt but it looks like he has not taken the meds for > 1 month on PDMP -for now will manage pain with dilaudid ETOH abuse: -last use on 05/03 -will start the pt on ETOH withdrawal protocol - pt already on gabapentin 600mg TID -IV thiamine, folic acid -Monitor for withdrawal symptoms Elevated BP: -no hx of HTN - for now will manage with labetalol prn - BP improved Depression/anxiety: -c/w home meds Diet: switch back to clear liquid diet DVT PPx: due to possible blood in the vomit SCDs Code Status:FULL CODE Emergency Contact: Daughter Aggie: [phone] Admission and Anticipated Discharge Date Admission Date: May 04, 2021 Subjective Patient seen in follow-up of nausea vomiting, abdominal pain, secondary to pancreatitis, DKA, and possible bowel obstruction Currently sitting up in bed, in no acute distress Denies fevers, chills, chest pain shortness of breath Continues to have some abdominal pain, mostly in epigastric area , now increased with eating, will switch back to clear liquid diet says that he was vomiting at home, however no more vomiting now Review of Systems Review of Systems: All systems reviewed & are unremarkable except as noted in Subjective Physical Exam Physical Exam: General:. thin male sitting up in bed, in NAD HEENT:. NC/AT, EOMI, PERRL, Sclera non-icteric Lungs:. No signs of respiratory distress, CTA, no wheezing or crackles Heart:. Normal S1, S2, no murmur Abdominal:+ abd pain to palpation (epigastric, improved), ND, Soft, + BS MSK:. No LE edema, moves extremities Skin:. no rash or open wound Psych:. AAOx3, normal affect Results & Data Results & Data ([facility]) Vital Signs (Past 12 Hours) Vital Signs Temp Pulse Resp BP Pulse Ox 05/07/21 07:35 36.5 C 94 H 20 123/55 L 97 05/07/21 02:41 36.5 C 93 H 18 127/80 98 Laboratory Results 05/07/21 05/07/21 05/07/21 Range/Units 11:04 10:01 08:53 WBC (4.8-10.8) K/uL RBC (4.7-6.1) M/uL Hgb (14.0-18.0) g/dL Hct (42-52) % MCV (80-100) fL MCH (25-34) pg MCHC (32-36) g/dL RDW Std Deviation (36.4-46.3) fL RDW Coeff of Nils (11.5-14.5) % Plt Count (130-400) K/uL MPV (7.4-10.4) fL VBG pH (7.36-7.41) Sodium (136-145) mmol/L Potassium (3.5-5.1) mmol/L Chloride (98-107) mmol/L Carbon Dioxide (21-32) mmol/L Anion Gap (3-11) BUN (7-18) mg/dl Creatinine (0.6-1.4) mg/dl Est Cr Clr Drug Dosing ml/min Est GFR ( Amer) ml/min Est GFR (Non-Af Amer) ml/min BUN/Creatinine Ratio (10-20) Glucose (70-99) mg/dl POC Glucose 175 H 237 H 324 H* (70-99) mg/dl Calcium (8.5-10.1) mg/dl Phosphorus (2.5-4.9) mg/dl Magnesium (1.8-2.4) mg/dl Beta-Hydroxybutyric Acd (0.2-2.81) mg/dl 05/07/21 05/07/21 05/07/21 Range/Units 07:26 07:26 06:26 WBC (4.8-10.8) K/uL RBC (4.7-6.1) M/uL Hgb (14.0-18.0) g/dL Hct (42-52) % MCV (80-100) fL MCH (25-34) pg MCHC (32-36) g/dL RDW Std Deviation (36.4-46.3) fL RDW Coeff of Nils (11.5-14.5) % Plt Count (130-400) K/uL MPV (7.4-10.4) fL VBG pH (7.36-7.41) Sodium (136-145) mmol/L Potassium (3.5-5.1) mmol/L Chloride (98-107) mmol/L Carbon Dioxide (21-32) mmol/L Anion Gap (3-11) BUN (7-18) mg/dl Creatinine (0.6-1.4) mg/dl Est Cr Clr Drug Dosing ml/min Est GFR ( Amer) ml/min Est GFR (Non-Af Amer) ml/min BUN/Creatinine Ratio (10-20) Glucose 390 H* (70-99) mg/dl POC Glucose 383 H* 370 H* (70-99) mg/dl Calcium (8.5-10.1) mg/dl Phosphorus (2.5-4.9) mg/dl Magnesium (1.8-2.4) mg/dl Beta-Hydroxybutyric Acd 2.08 (0.2-2.81) mg/dl 05/07/21 05/07/21 05/07/21 Range/Units 06:26 06:26 06:02 WBC (4.8-10.8) K/uL RBC (4.7-6.1) M/uL Hgb (14.0-18.0) g/dL Hct (42-52) % MCV (80-100) fL MCH (25-34) pg MCHC (32-36) g/dL RDW Std Deviation (36.4-46.3) fL RDW Coeff of Nils (11.5-14.5) % Plt Count (130-400) K/uL MPV (7.4-10.4) fL VBG pH 7.36 (7.36-7.41) Sodium 135 L (136-145) mmol/L Potassium 3.8 (3.5-5.1) mmol/L Chloride 105 (98-107) mmol/L Carbon Dioxide 25 (21-32) mmol/L Anion Gap 5.0 (3-11) BUN 4 L (7-18) mg/dl Creatinine 1.11 (0.6-1.4) mg/dl Est Cr Clr Drug Dosing 66.5 ml/min Est GFR ( Amer) 84.4 ml/min Est GFR (Non-Af Amer) 72.8 ml/min BUN/Creatinine Ratio 3.9 L (10-20) Glucose 387 H* (70-99) mg/dl POC Glucose > 600 H* (70-99) mg/dl Calcium 8.5 (8.5-10.1) mg/dl Phosphorus 2.5 (2.5-4.9) mg/dl Magnesium 1.9 (1.8-2.4) mg/dl Beta-Hydroxybutyric Acd (0.2-2.81) mg/dl 05/07/21 05/06/21 05/06/21 Range/Units 01:04 23:35 21:41 WBC (4.8-10.8) K/uL RBC (4.7-6.1) M/uL Hgb (14.0-18.0) g/dL Hct (42-52) % MCV (80-100) fL MCH (25-34) pg MCHC (32-36) g/dL RDW Std Deviation (36.4-46.3) fL RDW Coeff of Nils (11.5-14.5) % Plt Count (130-400) K/uL MPV (7.4-10.4) fL VBG pH (7.36-7.41) Sodium (136-145) mmol/L Potassium (3.5-5.1) mmol/L Chloride (98-107) mmol/L Carbon Dioxide (21-32) mmol/L Anion Gap (3-11) BUN (7-18) mg/dl Creatinine (0.6-1.4) mg/dl Est Cr Clr Drug Dosing ml/min Est GFR ( Amer) ml/min Est GFR (Non-Af Amer) ml/min BUN/Creatinine Ratio (10-20) Glucose (70-99) mg/dl POC Glucose 183 H 80 183 H (70-99) mg/dl Calcium (8.5-10.1) mg/dl Phosphorus (2.5-4.9) mg/dl Magnesium (1.8-2.4) mg/dl Beta-Hydroxybutyric Acd (0.2-2.81) mg/dl 05/06/21 05/06/21 05/06/21 Range/Units 19:39 17:57 15:29 WBC (4.8-10.8) K/uL RBC (4.7-6.1) M/uL Hgb (14.0-18.0) g/dL Hct (42-52) % MCV (80-100) fL MCH (25-34) pg MCHC (32-36) g/dL RDW Std Deviation (36.4-46.3) fL RDW Coeff of Nils (11.5-14.5) % Plt Count (130-400) K/uL MPV (7.4-10.4) fL VBG pH (7.36-7.41) Sodium (136-145) mmol/L Potassium (3.5-5.1) mmol/L Chloride (98-107) mmol/L Carbon Dioxide (21-32) mmol/L Anion Gap (3-11) BUN (7-18) mg/dl Creatinine (0.6-1.4) mg/dl Est Cr Clr Drug Dosing ml/min Est GFR ( Amer) ml/min Est GFR (Non-Af Amer) ml/min BUN/Creatinine Ratio (10-20) Glucose (70-99) mg/dl POC Glucose 206 H 208 H 236 H (70-99) mg/dl Calcium (8.5-10.1) mg/dl Phosphorus (2.5-4.9) mg/dl Magnesium (1.8-2.4) mg/dl Beta-Hydroxybutyric Acd (0.2-2.81) mg/dl 05/06/21 05/06/21 05/06/21 Range/Units 14:37 13:56 13:03 WBC (4.8-10.8) K/uL RBC (4.7-6.1) M/uL Hgb (14.0-18.0) g/dL Hct (42-52) % MCV (80-100) fL MCH (25-34) pg MCHC (32-36) g/dL RDW Std Deviation (36.4-46.3) fL RDW Coeff of Nils (11.5-14.5) % Plt Count (130-400) K/uL MPV (7.4-10.4) fL VBG pH (7.36-7.41) Sodium (136-145) mmol/L Potassium (3.5-5.1) mmol/L Chloride (98-107) mmol/L Carbon Dioxide (21-32) mmol/L Anion Gap (3-11) BUN (7-18) mg/dl Creatinine (0.6-1.4) mg/dl Est Cr Clr Drug Dosing ml/min Est GFR ( Amer) ml/min Est GFR (Non-Af Amer) ml/min BUN/Creatinine Ratio (10-20) Glucose (70-99) mg/dl POC Glucose 260 H 292 H 368 H* (70-99) mg/dl Calcium (8.5-10.1) mg/dl Phosphorus (2.5-4.9) mg/dl Magnesium (1.8-2.4) mg/dl Beta-Hydroxybutyric Acd (0.2-2.81) mg/dl 05/06/21 05/06/21 05/06/21 Range/Units 13:01 11:54 11:44 WBC 4.97 (4.8-10.8) K/uL RBC 4.45 L (4.7-6.1) M/uL Hgb 12.7 L (14.0-18.0) g/dL Hct 37.3 L (42-52) % MCV 83.8 (80-100) fL MCH 28.5 (25-34) pg MCHC 34.0 (32-36) g/dL RDW Std Deviation 49.2 H (36.4-46.3) fL RDW Coeff of Nils 16.0 H (11.5-14.5) % Plt Count 223 (130-400) K/uL MPV 9.0 (7.4-10.4) fL VBG pH (7.36-7.41) Sodium (136-145) mmol/L Potassium (3.5-5.1) mmol/L Chloride (98-107) mmol/L Carbon Dioxide (21-32) mmol/L Anion Gap (3-11) BUN (7-18) mg/dl Creatinine (0.6-1.4) mg/dl Est Cr Clr Drug Dosing ml/min Est GFR ( Amer) ml/min Est GFR (Non-Af Amer) ml/min BUN/Creatinine Ratio (10-20) Glucose (70-99) mg/dl POC Glucose 334 H* 266 H (70-99) mg/dl Calcium (8.5-10.1) mg/dl Phosphorus (2.5-4.9) mg/dl Magnesium (1.8-2.4) mg/dl Beta-Hydroxybutyric Acd (0.2-2.81) mg/dl Medications Administered Current Inpatient Medications Amitriptyline HCl (Amitriptyline Hcl 25 Mg Tab) 75 mg PO HS MELODY Stop: 06/03/21 20:59 Last Admin: 05/06/21 21:42 Dose: 75 mg Documented by: Clonazepam (Clonazepam 1 Mg Tab) 1 mg PO DAILY MELODY Stop: 06/04/21 08:59 Last Admin: 05/07/21 09:18 Dose: 1 mg Documented by: Dextrose (Dextrose 50% 50 Ml Syringe) 25 - 50 ml IV UD PRN; Protocol PRN Reason: Hypoglycemia Protocol Stop: 06/03/21 19:22 Docusate Sodium (Docusate Sodium 100 Mg Cap) 100 mg PO BID MELODY Stop: 06/03/21 20:59 Last Admin: 05/04/21 20:58 Dose: Not Given Documented by: Escitalopram Oxalate (Escitalopram Oxalate 20 Mg Tab) 20 mg PO DAILY MELODY Stop: 06/04/21 08:59 Last Admin: 05/07/21 09:13 Dose: 20 mg Documented by: Gabapentin (Gabapentin 300 Mg Cap) 600 mg PO TID MELODY Stop: 06/06/21 03:44 Last Admin: 05/07/21 04:49 Dose: 600 mg Documented by: Glucagon (Glucagon For Inj 1 Mg Vial) 1 mg SQ UD PRN; Protocol PRN Reason: Hypoglycemia Protocol Stop: 06/03/21 19:22 Glucose (Glucose 10 Tabs/Tube) 4 - 8 tabs PO UD PRN; Protocol PRN Reason: Hypoglycemia Protocol Stop: 06/03/21 19:22 Glucose (Glucose 40% Gel 15 Gm Tube) 15 - 30 gm PO UD PRN; Protocol PRN Reason: Hypoglycemia Protocol Stop: 06/03/21 19:22 Hydromorphone HCl (Hydromorphone Inj 0.5 Mg/0.5 Ml Syr) 0.5 mg IV Q6H PRN PRN Reason: Pain Stop: 05/19/21 13:37 Last Admin: 05/06/21 23:15 Dose: 0.5 mg Documented by: Insulin Human Regular 250 (units/ Sodium Chloride) 250 mls @ 0 mls/hr IV .Q0M MELODY; Protocol Stop: 06/03/21 21:59 Last Titration: 05/07/21 11:17 Dose: 0 units/hr, 0 mls/hr Documented by: Thiamine HCl 100 mg/ Syringe 10 mls @ 2 mls/min IV QAM MELODY Stop: 06/04/21 08:59 Last Admin: 05/07/21 09:12 Dose: 2 mls/min Documented by: Folic Acid 1 mg/ Syringe 10 mls @ 5 mls/min IV QAM MELODY Stop: 06/04/21 08:59 Last Admin: 05/07/21 09:13 Dose: 5 mls/min Documented by: Pantoprazole Sodium 40 mg/ (Syringe) 10 mls @ 5 mls/min IV BID MELODY Stop: 06/04/21 08:59 Last Admin: 05/07/21 09:12 Dose: 5 mls/min Documented by: Potassium Chloride/Dextrose/Sod Cl (D5w And 1/2nss + 20meq Kcl) 20 meq in 1,000 mls @ 200 mls/hr IV .Q5H MELODY Stop: 06/04/21 08:59 Last Infusion: 05/07/21 10:04 Dose: Infused Documented by: Potassium Chloride 40 meq/ (Sodium Chloride) 1,020 mls @ 100 mls/hr IV .[id number] ONE Stop: 05/07/21 16:41 Last Admin: 05/07/21 07:39 Dose: 100 mls/hr Documented by: Insulin Aspart (Insulin Aspart 100 Units/Ml 3 Ml Pen) 0 units SC ACHS [facility] Stop: 06/04/21 07:29 Last Admin: 05/07/21 08:32 Dose: 6 units Documented by: Miscellaneous (Carbohydrates For Hypoglycemia ) 15 - 30 gm PO UD PRN PRN Reason: Hypoglycemia Protocol Stop: 06/03/21 19:22 Miscellaneous (Remove Nicoderm Patch) 1 ea N/A DAILY@0859 [facility] Stop: 06/04/21 08:58 Last Admin: 05/07/21 10:04 Dose: 1 ea Documented by: Miscellaneous Information (Pharmacy Glycemic Mgmt Consult) 1 ea N/A UD PRN PRN Reason: Consult Stop: 06/03/21 21:00 Nicotine (Nicotine 21 Mg/24 Hr Tdsy) 21 mg TD QAM [facility] Stop: 06/04/21 08:59 Last Admin: 05/07/21 09:11 Dose: 21 mg Documented by: Non-Formulary Medication (Cdzogq-Ywejwtri-Kwedkkm [Pancreaze]) 1 cap PO TIDM [facility] Stop: 06/06/21 11:59 Ondansetron HCl (Ondansetron Inj 2 Mg/Ml 2 Ml Vial) 4 mg IV Q6H PRN PRN Reason: Nausea Stop: 06/03/21 19:22 Pantoprazole Sodium (Pantoprazole 40 Mg Tab) 40 mg PO BID MELODY Stop: 06/03/21 20:59 Last Admin: 05/04/21 21:27 Dose: 40 mg Documented by: Potassium Phosphate (Pot Phosphate Monobasic W/ Sod Tab) 1 tab PO QID [facility] Stop: 06/04/21 16:59 Last Admin: 05/07/21 09:15 Dose: 1 tab Documented by: Quetiapine Fumarate (Quetiapine Fumarate 200 Mg Tab) 400 mg PO HS [facility] Stop: 06/03/21 20:59 Last Admin: 05/06/21 21:43 Dose: 400 mg Documented by:
--- NOTE | 2021-05-07 12:06 | Pharmacy Report ---
Pharmacy Glycemic Short Note 2 - Date of Service May 07, 2021 - Glycemic Short BSG Results (Last 24 hours): 05/06/21 05/06/21 05/06/21 13:01 13:03 13:56 Glucose POC Glucose 334 H* 368 H* 292 H 05/06/21 05/06/21 05/06/21 14:37 15:29 17:57 Glucose POC Glucose 260 H 236 H 208 H 05/06/21 05/06/21 05/06/21 19:39 21:41 23:35 Glucose POC Glucose 206 H 183 H 80 05/07/21 05/07/21 05/07/21 01:04 06:02 06:26 Glucose 387 H* POC Glucose 183 H > 600 H* 05/07/21 05/07/21 05/07/21 06:26 07:26 07:26 Glucose 390 H* POC Glucose 370 H* 383 H* 05/07/21 05/07/21 05/07/21 08:53 10:01 11:04 Glucose POC Glucose 324 H* 237 H 175 H OUTPATIENT ANTIDIABETIC REGIMEN: * glipizide 5 mg BID * Lantus 25 units BID * Novolog 5 units TIDM ASSESSMENT: 05/07 * Patient has been receiving IV insulin infusion per protocol + SQ basal bolus insulin regimen to help wean off of insulin drip. * Insulin infusion was stopped late last evening but BSG not rechecked until this morning. Pt with severe hyperglycemia this morning without adequate basal insulin on board. Pt does received Lantus BID as an outpatient but was only given once daily yesterday morning. * Restarted IV insulin infusion this morning for critical hyperglycemia - increased Lantus dose for AM and added HS/BID dosing. Will transition off of IV insulin infusion ~ 2 hrs after lunch when BSG < 180 x 2 and IV insulin infusion rate is <2 units/hr 05/06/2021 * Patient remains on insulin infusion with rates decreasing throughout the day. * Give patient's home dose of 30 units of Lantus this morning with plan to d/c insulin infusion around 1400 today. * Patient's BSGs spiked today into high 300s so will delay drip transition for now. * Spoke to physician to see if dextrose could be removed from IV fluids which will help decrease BSGs. * Lowered goal range to 140-200 mg/dL. Background * Mr Alicia is a 60 y/o M with a PMH of T2DM who presents with pancreatitis. Patient found to be in DKA and started on insulin infusion. * Insulin infusion stopped at midnight. * Lantus 15 units given last night and 10 units given this morning. * Morning PRP indicated patient's gap was widening again so insulin infusion restarted along with D5 to maintain insulin infusion. * Patient is NPO. * Will continue with insulin infusion at this time since patient is critically ill and NPO. Insulin requirements at this time are unclear. PLAN FOR INPATIENT GLYCEMIC CONTROL: * Hold outpatient oral diabetes medications * Lantus 40 units SQ x 1 dose this AM. Lantus 10 units SQ HS x 1 dose this evening for a total of 50 units today. Outpatient dosing is Lantus 25 units SQ BID - will resume this tomorrow. * NovoLog ACHS and Q4hrs overnight * Goal range 110-140 mg/dl * CF = 25 * CR = 8 PLAN FOR DISCHARGE: * 9.4% on 05/05/21 * Patient seen by community nutrition educator who recommends: 1.) Likely needs increase in Humalog meal coverage- will review diet tomorrow to better assess. 2.) SMBG ACHS for insulin dosing. 3.) Follow sick day guidelines for illness. 4.) A1c > 9%- pt will need close follow-up at time of discharge.
[2021-05-07] MEDS ORDERED: DC IV INSULIN INFUSION 1 EA DEVI ONE (14:00)
[2021-05-07] MEDS ORDERED: LORazepam 1 MG TAB PO PRN (17:45)
[2021-05-07] MEDS: PANCREAZE (LIPASE 4,200U) CAP PO SCH (18:02)
[2021-05-07] MEDS: AMITRIPTYLINE HCL 25 MG TAB PO SCH (21:11)
[2021-05-07] MEDS: QUEtiapine FUMARATE 200 MG TAB PO SCH (21:13)
[2021-05-07] MEDS: LORazepam 1 MG TAB PO PRN (21:23)
[2021-05-07] MEDS: HYDROmorphone INJ 0.5 MG/0.5 ML SYR IV PRN (23:55)
[2021-05-08] MEDS: INSULIN ASPART 100 UNITS/ML 3 ML PEN SC SCH ×5 (04:12→20:20)
[2021-05-08 06:23] LABS: BUN Creatinine Ratio 9.5 (10-20); Calcium 8.3 mg/dl (8.5-10.1); Creatinine Clr Calc Pharmacy 85.7 ml/min; Est GFR (African American) 109.2 ml/min; Est GFR (Non-African American) 94.3 ml/min; Magnesium 1.8 mg/dl (1.8-2.4); Potassium 3.5 mmol/L (3.5-5.1)
[2021-05-08 06:27] LABS: Phosphorus 3.7 mg/dl (2.5-4.9)
[2021-05-08] MEDS: GABAPENTIN 300 MG CAP PO SCH ×3 (08:49→20:20)
[2021-05-08] MEDS: ESCITALOPRAM OXALATE 20 MG TAB PO SCH (08:50)
[2021-05-08] MEDS: PANCREAZE (LIPASE 4,200U) CAP PO SCH ×3 (08:50→17:33)
[2021-05-08] MEDS: POT PHOSPHATE MONOBASIC W/ SOD TAB PO SCH ×4 (08:51→20:17)
[2021-05-08] MEDS: THIAMINE HCL 100 MG in SYRINGE 9 ML IV SCH (08:52)
[2021-05-08] MEDS: FOLIC ACID 1 MG in SYRINGE 9.8 ML IV SCH (08:52)
[2021-05-08] MEDS: PANTOprazole 40 MG in SYRINGE 0 ML IV SCH ×2 (08:52→20:17)
[2021-05-08] MEDS: NICOTINE 21 MG/24 HR TDSY TD SCH (08:53)
[2021-05-08] MEDS: INSULIN GLARGINE SOLOSTAR 100 UNITS/ML 3 ML PEN SC SCH (08:54)
[2021-05-08 10:27] LABS: Codeine Urine NEGATIVE ng/mL (<50); Hydrocodone Urine NEGATIVE ng/mL (<50); Hydromor Urine NEGATIVE ng/mL (<50); Methadone, Ur Metabolite 682 ng/mL (<100); Morphine Urine 5360 ng/mL (<50); Norhydrocodone Conf Ur NEGATIVE ng/mL (<50); Noroxycodone Urine NEGATIVE ng/mL (<50); Oxycodone Urine NEGATIVE ng/mL (<50); Oxymorph Urine NEGATIVE ng/mL (<50)
[2021-05-08] MEDS: HYDROmorphone INJ 0.5 MG/0.5 ML SYR IV PRN ×2 (10:27→19:22)
[2021-05-08] MEDS: clonazePAM 1 MG TAB PO SCH (10:27)
--- NOTE | 2021-05-08 13:49 | Hospitalist Progress Note ---
Date of Service May 08, 2021 Assessment & Plan (1) Abdominal pain: (2) Nausea & vomiting: (3) Hyperglycemia: Plan: Abd pain, N/V: -likely 2/2 Pancreatitis vs partial Large bowel obstruction CT abd 1. There is abrupt caliber change seen within the distal transverse colon. The colon proximal to this location is mildly dilated and filled with gas and stool. Therefore, this could be transient or possibly represent a partial large bowel obstruction with the transition point located at the distal transverse colon. Given the abrupt caliber change, a colonic lesion cannot be excluded. Follow-up colonoscopy is recommended for further evaluation. 2. Chronic pancreatitis, unchanged. No evidence for acute pancreatitis at this time. 3. Hepatic steatosis. 4. Mildly distended gas and fluid-filled stomach. However, no evidence for gastric outlet obstruction. GI and Gen. surgery consulted Per surgery Pt does not appear to be completely obstructed No surgical intervention indicated at this time Recommend direct visualization with colonoscopy, if not able to perform then would recommend repeat CT scan with oral contrast given the time to reach the colon Per GI Will need outpatient followup for further evaluation of chronic pancreatitis Continue Pancreatic enzyme therapy and PPI Advance diet as per primary team due to DKA, but no criteria for acute pancreatitis to limit timing of diet Will need outpatient colonoscopy when acute issues resolve Consider CT abd/pelvis with PO contrast if patient refuses colonoscopy - NPO since admission, will try clear liquid diet now (05/05) - Hgb in the hospital better than clinic hgb (hemoconcentrated?) -on 10.4 in 03/2021 and on admission 12.8 -due to hx of blood in the vomit will trend H/H, GI consulted , cont. IV PPI -SCD for DVT ppx -WBC mildly elevated on admission 12.2K, now down to 7.4K (after IV fluids and treatment of DKA); normal UA, afebrile - 05/06 - tolerating clear liquid diet, will switch to low fiber diet 05/07 -reports increased pain with eating, will switch back to clear liquid diet for this evening, will reevaluate tomorrow 05/08: Tolerating clear liquid diet, advance diet today DKA, Hyperglycemia: Hgb A1c 9.4% Glycemic management as per pharmacy. Continue Lantus. Chronic pain syndrome with methadone tx -methadone prescribed by Dr. Neal Gee -last took medication 2 weeks ago per pt but it looks like he has not taken the meds for > 1 month on PDMP -for now will manage pain with dilaudid ETOH abuse: -last use on 05/03 -will start the pt on ETOH withdrawal protocol - pt already on gabapentin 600mg TID -IV thiamine, folic acid -Monitor for withdrawal symptoms Elevated BP: -no hx of HTN - for now will manage with labetalol prn - BP improved Depression/anxiety: -c/w home meds Diet: Started on low fiber diet DVT PPx: due to possible blood in the vomit SCDs Code Status:FULL CODE Emergency Contact: Daughter Aggie: [phone] Admission and Anticipated Discharge Date Admission Date: May 04, 2021 Subjective Overall reports he feels better today. Have been tolerating clear liquid diet. Does report 5 out of 10 abdominal pain that is close to his baseline. Denies any nausea or vomiting. Denies any chest pain or shortness of breath. The review of system is negative. Review of Systems Review of Systems: All systems reviewed & are unremarkable except as noted in HPI & below Physical Exam Physical Exam: General: A&Ox3 HENT: NCAT, MMM, EOMI Eyes: PERRLA Neck: Supple, normal range of motion CVS: normal rate and rhythm Resp: b/l clear breath sounds Abdomen: Soft, mild diffuse tenderness Extremities: No c/c/e Neuro: face symmetric, strength grossly equal, no focal deficit Skin: warm and dry, no rashes/lesions/errythema MSK: normal ROM, no joint swelling/erythema Results & Data Results & Data ([facility]) Vital Signs (Past 12 Hours) Vital Signs Temp Pulse Pulse Resp BP Pulse Ox 05/08/21 11:09 36.8 C 98 H 18 132/85 97 05/08/21 08:15 94 H 05/08/21 07:40 36.4 C L 106 H 18 125/76 97 05/08/21 04:11 36.6 C 68 16 118/80 98
[2021-05-08] MEDS: CARBOHYDRATES FOR HYPOGLYCEMIA PO PRN ×2 (20:10→20:25)
[2021-05-08] MEDS: AMITRIPTYLINE HCL 25 MG TAB PO SCH (20:18)
[2021-05-08] MEDS: QUEtiapine FUMARATE 200 MG TAB PO SCH (20:21)
[2021-05-08] MEDS ORDERED: INSULIN GLARGINE SOLOSTAR 100 UNITS/ML 3 ML PEN SC ONE (21:00)
[2021-05-08] MEDS: LORazepam 1 MG TAB PO PRN (22:37)
[2021-05-09] MEDS: INSULIN ASPART 100 UNITS/ML 3 ML PEN SC SCH ×4 (00:05→12:02)
[2021-05-09] MEDS: HYDROmorphone INJ 0.5 MG/0.5 ML SYR IV PRN (02:01)
[2021-05-09] MEDS: CARBOHYDRATES FOR HYPOGLYCEMIA PO PRN ×2 (07:33→07:53)
[2021-05-09] MEDS: PANTOprazole 40 MG in SYRINGE 0 ML IV SCH (07:35)
[2021-05-09] MEDS: PANCREAZE (LIPASE 4,200U) CAP PO SCH ×2 (07:36→12:18)
[2021-05-09] MEDS: THIAMINE HCL 100 MG in SYRINGE 9 ML IV SCH (07:36)
[2021-05-09] MEDS: GABAPENTIN 300 MG CAP PO SCH ×2 (07:36→14:16)
[2021-05-09] MEDS: ESCITALOPRAM OXALATE 20 MG TAB PO SCH (07:36)
[2021-05-09] MEDS: NICOTINE 21 MG/24 HR TDSY TD SCH (07:37)
[2021-05-09] MEDS: POT PHOSPHATE MONOBASIC W/ SOD TAB PO SCH ×2 (07:38→12:18)
[2021-05-09] MEDS: FOLIC ACID 1 MG in SYRINGE 9.8 ML IV SCH (07:39)
[2021-05-09] MEDS: clonazePAM 1 MG TAB PO SCH (07:41)
[2021-05-09] MEDS: INSULIN GLARGINE SOLOSTAR 100 UNITS/ML 3 ML PEN SC SCH (08:29)
[2021-05-09] MEDS ORDERED: oxyCODONE HCL IR 5 MG TAB (IMMEDIATE RELEASE) PO STA (09:04)
--- NOTE | 2021-05-09 10:06 | Pharmacy Report ---
Pharmacy Glycemic Short Note 2 - Date of Service May 09, 2021 - Glycemic Short BSG Results (Last 24 hours): 05/08/21 05/08/21 05/08/21 11:30 16:34 20:07 POC Glucose 194 H 197 H 54 L* 05/08/21 05/08/21 05/08/21 20:26 20:41 23:57 POC Glucose 63 L* 95 235 H 05/09/21 05/09/21 05/09/21 04:31 07:21 07:22 POC Glucose 364 H* 63 L* 59 L* 05/09/21 05/09/21 05/09/21 07:50 07:51 08:10 POC Glucose 53 L* 55 L* 77 OUTPATIENT ANTIDIABETIC REGIMEN: * glipizide 5 mg BID * Lantus 25 units BID * Novolog 5 units TIDM ASSESSMENT: 05/09 * Pt with LOW BSG yesterday at bedtime after receiving 20 units of NovoLog for 98g CHO consumed at dinner. Current CHO ratio seems appropriate when less than 50g CHO are consumed but it is too much when given with large meals + correctional insulin. * Pt with severe hyperglycemia overnight. Pt had high carb snacks all night long without coverage. Unfortunately patient with repeat LOW BSG this morning after receiving 15 units of NovoLog for BSG = 364mg/dl and RN covered 18g CHO (which was likely underestimated). * Again, somewhat aggressive NovoLog needed for low CHO consumed but this is too much when combined with CF for hyperglycemia. * Will loosen CF, increase goal range for NovoLog and set a max NovoLog dose of 14 units. * Difficult to assess Lantus dosing since AM BSGs are not true fasting. Current dosing of 25 units SQ BID is c/w outpatient dosing therefore will continue. 05/07 * Patient has been receiving IV insulin infusion per protocol + SQ basal bolus insulin regimen to help wean off of insulin drip. * Insulin infusion was stopped late last evening but BSG not rechecked until this morning. Pt with severe hyperglycemia this morning without adequate basal insulin on board. Pt does received Lantus BID as an outpatient but was only given once daily yesterday morning. * Restarted IV insulin infusion this morning for critical hyperglycemia - increased Lantus dose for AM and added HS/BID dosing. Will transition off of IV insulin infusion ~ 2 hrs after lunch when BSG < 180 x 2 and IV insulin infusion rate is <2 units/hr 05/06/2021 * Patient remains on insulin infusion with rates decreasing throughout the day. * Give patient's home dose of 30 units of Lantus this morning with plan to d/c insulin infusion around 1400 today. * Patient's BSGs spiked today into high 300s so will delay drip transition for now. * Spoke to physician to see if dextrose could be removed from IV fluids which will help decrease BSGs. * Lowered goal range to 140-200 mg/dL. Background * Mr Alicia is a 60 y/o M with a PMH of T2DM who presents with pancreatitis. Patient found to be in DKA and started on insulin infusion. * Insulin infusion stopped at midnight. * Lantus 15 units given last night and 10 units given this morning. * Morning PRP indicated patient's gap was widening again so insulin infusion res tarted along with D5 to maintain insulin infusion. * Patient is NPO. * Will continue with insulin infusion at this time since patient is critically ill and NPO. Insulin requirements at this time are unclear. PLAN FOR INPATIENT GLYCEMIC CONTROL: * Hold outpatient oral diabetes medications * Lantus 25 units SQ BID * NovoLog ACHS and Q4hrs overnight * Goal range 120-160 mg/dl * CF = 40 * CR = 7 PLAN FOR DISCHARGE: * 9.4% on 05/05/21 * Patient seen by special educator who recommends: 1.) Likely needs increase in Humalog meal coverage * Pharmacy recs: Agree with DM educator that patient needs education on CHO counting. Pt currently takes 5 units SQ TIDM as an outpatient. May consider changing to a scale to increase accuracy of dosing. * BSG RANGE SMALL-MEDIUM MEAL (30-65g CHO) LARGE MEAL (more than 65g CHO) BSG below 100 4 units NovoLog for meal 5 units NovoLog for meal BSG 100- 140mg/dl 5 units NovoLog for meal (no coverage for BSG) 6 units NovoLog for meal (no coverage for BSG) BSG 140-180 mg/dl 5 units NovoLog for meal + 1 unit coverage = 6 units 6 units NovoLog for meal + 1 unit coverage = 7 units BSG 181-250 mg/dl 5 units NovoLog for meal + 2 unit coverage = 7 units 6 units NovoLog for meal + 2 unit coverage = 8 units BSG 250-350 mg/dl 5 units NovoLog for meal + 3 unit coverage = 8 units 6 units NovoLog for meal + 3 unit coverage = 9 units BSG above 350 mg/dl 5 units NovoLog for meal + 4 unit coverage = 9 units 6 units NovoLog for meal + 4 unit coverage = 10 units * Glipizide is on med rec - patient denies taking this. Pt is a type 1 (or possibly type 1.5) and therefore glipizide not indicated. Recommend DC this from the med rec. * No changes needed to outpatient basal insulin dosing. 2.) SMBG ACHS for insulin dosing. 3.) Follow sick day guidelines for illness. 4.) A1c > 9%- pt will need close follow-up at time of discharge.
[2021-05-09] MEDS: LORazepam 1 MG TAB PO PRN (12:26)
--- NOTE | 2021-05-09 13:12 | Discharge Summary ---
Date of Service May 09, 2021 Admission HPI Per Admitting Provider Pt is a 60 M with with hx of ETOH abuse, Chronic pancreatitis, Type 1 DM, HLD, Depression, Hep C, Opioid use and dependence (was on methadone), chronic pain syndrome, Anxiety, hypogonadism came to the ER with severe epigastric abd pain that radiates to the lower back, N/V. per pt he noticed some blood in his vomit once. Also complained of b/l frontal PATEL. He drinks Vodka &usually drinks gallon. Last ETOH use was yesterday. Per pt has hx of multiple admissions for pancreatitis. He was on fentayl 120 mcg patch, Dilaudid 12 mg 5-6x/day, due to high dose of pain medication he was started on methadone and currently on 30mg daily but have not taken the medication for few weeks (due to transportation issues) Denied any fever In the ER pt was given morphine for pain control and 1L of NS bolus Admission Exam Per Admitting Provider General:. NAD, well developed, well nourished, average body habitus HEENT:. Normocephalic and atraumatic, Normal Conjunctiva, EOMI, Sclera is non- icteric Lungs:. No signs of respiratory distress, CTA, no wheezing or crackles Heart:. Normal S1, S2, no murmur Abdominal:.pt started complaining about abd pain with mild palpation (diffusely), ND, Soft, normal BS MSK:. No deformities of UE and LE, No leg edema Skin:. no rash or open wound Psych:. AAOx3, normal affect Principal Diagnosis Pancreatitis DKA Discharge Exam General: A&Ox3 HENT: NCAT, MMM, EOMI Eyes: PERRLA Neck: Supple, normal range of motion CVS: normal rate and rhythm Resp: b/l clear breath sounds Abdomen: Soft, mild diffuse tenderness Extremities: No c/c/e Neuro: face symmetric, strength grossly equal, no focal deficit Skin: warm and dry, no rashes/lesions/errythema MSK: normal ROM, no joint swelling/erythema Discharge Data Allergies Allergy/AdvReac Type Severity Reaction Status Date / Time trazodone AdvReac Severe PRIAPISM Verified 05/04/21 10:35 Consultations 05/04/21 15:07 ED Decision to Admit Stat 05/04/21 19:23 Consult Gastroenterology Routine Consult General Surgery Routine Ordered Studies 05/04/21 12:18 CT abd pelvis IV con only Stat Hospital Course (1) Abdominal pain: (2) Nausea & vomiting: (3) Hyperglycemia: Abd pain, N/V: -likely 2/2 Pancreatitis vs partial Large bowel obstruction CT abd 1. There is abrupt caliber change seen within the distal transverse colon. The colon proximal to this location is mildly dilated and filled with gas and stool. Therefore, this could be transient or possibly represent a partial large bowel obstruction with the transition point located at the distal transverse colon. Given the abrupt caliber change, a colonic lesion cannot be excluded. Follow-up colonoscopy is recommended for further evaluation. 2. Chronic pancreatitis, unchanged. No evidence for acute pancreatitis at this time. 3. Hepatic steatosis. 4. Mildly distended gas and fluid-filled stomach. However, no evidence for gastric outlet obstruction. GI and Gen. surgery consulted General surgery evaluated the patient and recommend no surgical intervention. Per GI Will need outpatient followup for further evaluation of chronic pancreatitis Will need outpatient colonoscopy when acute issues resolve -due to hx of blood in the vomit will trend H/H, GI consulted Patient was started on PPI Was started on clear liquid diet which was advanced slowly to solid. On the day of discharge patient was having a bowel movement and was tolerating diet. Abdominal pain is improved. Patient will need to follow-up with gastroenterology as an outpatient for colonoscopy. Patient requested to send all his [facility] medications prescriptions to his pharmacy since he just moved. Prescriptions were sent. DKA, Hyperglycemia: Hgb A1c 9.4% Glycemic management as per pharmacy. Continue Lantus. Patient was discharged on [facility] Lantus 25 units twice daily and Humalog. Chronic pain syndrome with methadone tx -methadone prescribed by Dr. Neal Gee -last took medication 2 weeks ago per pt but it looks like he has not taken the meds for > 1 month on PDMP ETOH abuse: -last use on 05/03 -will start the pt on ETOH withdrawal protocol - pt already on gabapentin 600mg TID Elevated BP: -no hx of HTN -Patient had slight elevation in systolic blood pressure. Continue monitor as an outpatient for starting antihypertensive. Depression/anxiety: -c/w home meds Total Time Total Time Spent Total Time Spent (In Minutes): 35 Discharge Plan Discharge Items Patient Disposition: Home - Self-Care Reason For Visit: ABD PAIN/N/V Discharge Diagnosis: Pancreatitis Activity: Resume your previous activity Non-emergency contact: Primary Care Provider Call non-emergency contact if: your symptoms worsen Follow-up/Referrals: Rolly Galicia MD [Outside Practitioners] - 05/13/21 11:10 am (Date & Time 05/13/2021 11:10 AM Provider [address] Mac, [place] [address] ) Diet: Low Fiber Addtl Attending Provider Instructions: Follow-up with your primary care physician as an outpatient. BSG RANGE SMALL-MEDIUM MEAL (30-65g CHO) LARGE MEAL (more than 65g CHO) BSG below 100 4 units NovoLog for meal 5 units NovoLog for meal BSG 100- 140mg/dl 5 units NovoLog for meal (no coverage for BSG) 6 units NovoLog for meal (no coverage for BSG) BSG 140-180 mg/dl 5 units NovoLog for meal + 1 unit coverage = 6 units 6 units NovoLog for meal + 1 unit coverage = 7 units BSG 181-250 mg/dl 5 units NovoLog for meal + 2 unit coverage = 7 units 6 units NovoLog for meal + 2 unit coverage = 8 units BSG 250-350 mg/dl 5 units NovoLog for meal + 3 unit coverage = 8 units 6 units NovoLog for meal + 3 unit coverage = 9 units BSG above 350 mg/dl 5 units NovoLog for meal + 4 unit coverage = 9 units 6 units NovoLog for meal + 4 unit coverage = 10 units Pending Studies at Discharge: No Stand-Alone Forms: [facility] [employer], Smoking Cessation Medications and DC Order Prescriptions: New (DME) Ketostix Strip See Rx Instructions .Route Qty: 50 RF: 0 Humalog U-100 Insulin 100 unit/mL cartridge 5 unit subcut TIDM Qty: 3 RF: 2 Continued docusate sodium [Colace] 100 mg Capsule 100 mg PO BID RF: 0 amitriptyline 75 mg Tablet 75 mg PO HS 7 Days Qty: 0 RF: 0 clonazepam 0.5 mg Tablet 1 mg PO DAILY 7 Days Qty: 0 RF: 0 gabapentin 400 mg Capsule 600 mg PO TID 7 Days Qty: 0 RF: 0 pantoprazole [Protonix] 40 mg Tablet,Delayed Release (Dr/Ec) 40 mg PO DAILY 30 Days Qty: 0 RF: 0 quetiapine [Seroquel] 400 mg Tablet 400 mg PO HS 7 Days Qty: 0 RF: 0 Lantus Solostar U-100 Insulin 100 unit/mL (3 mL) Insulin Pen 25 unit SUBCUT BID 30 Days Qty: 0 RF: 0 Pancreaze 4,200-14,200- 24,600 unit Capsule,Delayed Release(Dr/Ec) 1 cap PO TIDM 30 Days Qty: 0 RF: 0 escitalopram oxalate 20 mg 20 mg PO DAILY 7 Days Qty: 0 RF: 0 Discontinued glipizide 5 mg Tablet 5 mg PO BID RF: 0 Novolog U-100 Insulin aspart 5 units subcut TIDM RF: 0 Discharge Orders: Discharge Order (Routine); Ordered 05/09/21 Ordered By: Leela Donovan Admission Data Admit Date/Time: 05/04/21 15:24 Attending Provider: Leela Donovan Admit Provider: Liseth Coto Primary Care Provider: PCP,NO Other Providers: Lsieth Coto ; Omega Ulrich ; Roni Todd Other Interventions: Discharge Summary Assessment (RN) Last Done: 05/09/21 13:03
[2021-05-09] MEDS ORDERED: PANTOprazole 40 MG TAB PO SCH (21:00)
[2021-05-09] MEDS ORDERED: INSULIN GLARGINE SOLOSTAR 100 UNITS/ML 3 ML PEN SC SCH (21:00)
== END 2021-05-09 14:58 | disposition home or self-care (01) | DRG 438 ==
LOC: ED 10:05 → SUATTDRO 15:24 → 2N 15:24